=== PATIENT | female | born 1940 | race Caucasian/White ===

== ENCOUNTER 2017-04-06 17:23 | Inpatient (IN) | payer MEDICARE, OTHER ==
[~2017-04-06] VITALS: Ht 154.9 cm; Wt 84.0 kg
[~2017-04-06 17:23] MED LIST: ATOR20TA38 PO; CANA100T PO; CITA20TA11 PO; DEXL60CA2 PO; FERR-55 PO; FLUT16SP24 NASAL; GABA600T PO; HYDR-762 PO; INSU100I16 SC; INSU100I22 SC; LATA2.5D9 OP; MAGN400T27 PO; METO5TAB65 PO; VALS160T20 PO
[2017-04-06] MEDS ORDERED: SOD CHLORIDE 0.9% 1,000 ML IV STA (17:34)
[2017-04-06 17:55] LABS: BASOPHIL # 0.1 10^3/ul (0.0-0.1); EOSINOPHILS # 0.2 10^3/ul (0.0-0.5); EOSINOPHILS % 1.3 % (0.0-7.0); HEMATOCRIT 45.8 % (37.0-47.0); HEMOGLOBIN 15.6 g/dl (12.0-16.0); LYMPHOCYTES # 2.9 10^3/ul (0.8-2.9); LYMPHOCYTES % 25.6 % (15.0-51.0); MEAN CORPUSCULAR HEMOGLOBIN 30.1 pg (29.0-33.0); MEAN CORPUSCULAR HGB CONC 34.1 g/dl (32.0-37.0); MEAN CORPUSCULAR VOLUME 88.4 fl (82.0-101.0); MEAN PLATELET VOLUME 11.4 fl (7.4-10.4); MONOCYTE # 0.8 10^3/ul (0.3-0.9); MONOCYTES % 7.5 % (0.0-11.0); NEUTROPHIL # 7.1 10^3/ul (1.6-7.5); NEUTROPHILS % 64.2 % (39.0-77.0); PLATELET COUNT 349 10^3/UL (140-415); RED BLOOD COUNT 5.18 10^6/ul (4.20-5.40); RED CELL DISTRIBUTION WIDTH 13.2 % (11.5-14.5); WHITE BLOOD COUNT 11.1 10^3/ul (4.8-10.8)
[2017-04-06] MEDS ORDERED: DILTIAZEM 25 MG INJ IV ONE (18:00)
[2017-04-06 18:20] LABS: INR 0.91; PROTIME 12.3 Sec (12.2-14.2)
[2017-04-06 18:21] LABS: PARTIAL THROMBOPLASTIN TIME 25.2 Sec (25.0-35.0)
--- NOTE | 2017-04-06 18:21 | RADRPT ---
PROCEDURE: XR Chest. CLINICAL INDICATION: Chest pain. TECHNIQUE: Single frontal view. COMPARISON: None. FINDINGS: The lungs are clear. The heart is enlarged. There is no pleural effusion. There is no pneumothorax. IMPRESSION: 1. Cardiomegaly. 2. Clear lungs. RPTAT: QQ .Farhat Sigaal MD, MD Date Time Electronically viewed and signed by .Farhat Sigala MD, MD on 04/06/2017 18:21 .R/
[2017-04-06 18:32] LABS: CALCIUM 9.7 mg/dl (8.4-10.2); CREATININE 1.14 mg/dl (0.44-1.00)
[2017-04-06] MEDS ORDERED: POTASSIUM CHLORIDE (SR) 20 MEQ TAB PO STA (18:34)
[2017-04-06 18:36] LABS: POTASSIUM 2.4 mmol/L (3.5-5.1)
[2017-04-06 18:44] LABS: TROPONIN-I 0.049 ng/ml (0.00-0.12)
[2017-04-06 18:45] LABS: CK-MB 2.4 ng/ml (0.0-2.4); TROPONIN-I 0.05 ng/ml (0.00-0.12)
[2017-04-06] MEDS ORDERED: MAGNESIUM SULFATE 1 GM/D5W 100 ML IVPB ONE (19:00)
[2017-04-06] MEDS ORDERED: POTASSIUM CHLORIDE 250 ML IVPB ONE (19:00)
--- NOTE | 2017-04-06 19:17 | ERA ---
ER Documentation Chief Complaint Date/Time DATE: 04/06/17 TIME: 19:13 Chief Complaint SENT BY PMD FOR NEW ONSET OF A FIB , PT DIAPHORETIC , DENIES CP HPI This 76-year-old female presents to the emergency room for evaluation of heart palpitations. This patient states that she went to her primary care physician' s office, Dr. Manriquez where she is a new patient and the patient was found to be diaphoretic and an EKG did show atrial fibrillation. This patient has no history of atrial fibrillation. She states that she is feeling her heartbeat rapidly. She denies any actual chest pain or shortness of breath and came to the ER for evaluation. ROS All systems reviewed and are negative except as per history of present illness. Medications Home Meds Reported Medications Gabapentin* (Neurontin*) 600 Mg Tablet, 600 MG PO TID, TAB 11/09/14 Metolazone* (Metolazone*) 5 Mg Tablet, 5 MG PO DAILY, TAB 11/09/14 Ferrous Sulfate* (Ferrous Sulfate*) 325 Mg Tablet, 325 MG PO DAILY, TAB 11/09/14 Dexlansoprazole (Dexilant) 60 Mg Cap., 60 MG PO DAILY, CAP 11/09/14 Valsartan* (Diovan*) 160 Mg Tablet, 160 MG PO DAILY, TAB 11/09/14 Fluticasone Propionate* (Flonase* Nasal) 50 Mcg/[place] - 16 Gm [place].susp, 1 SPRAY NASAL DAILY, SPRAY TO EACH NOSTRIL 11/09/14 Citalopram Hydrobromide* (Celexa*) 20 Mg Tablet, 30 MG PO DAILY, TAB 11/09/14 Canagliflozin (Invokana) 100 Mg Tablet, 100 MG PO DAILY, TAB 11/09/14 Hydrocodone Bit-Acetaminophen* ([place]*) 10-325 Mg Tablet, 1 TAB PO Q4H Y for PAIN, TAB 11/09/14 Magnesium Oxide* (Mag-Oxide*) 400 Mg Tablet, 400 MG PO DAILY, TAB 11/09/14 Insulin Aspart (Novolog FlexPen) 100 Unit/1 Ml Insuln.pen, 0 SC SLIDING SCALE AC , EA 11/09/14 Insulin Detemir* (Levemir*) 100 Unit/1 Ml Insuln.pen, 50 UNIT SC QHS, EA 11/09/14 Latanoprost (Xalatan) 2.5 Ml Drops, 1 DROP OP QHS 11/09/14 Atorvastatin Calcium* (Atorvastatin Calcium*) 20 Mg Tablet, 20 MG PO HS, TAB 11/09/14 Allergies Allergies: Coded Allergies: sulfamethoxazole (Verified Allergy, Unknown, 11/09/14) trimethoprim (Verified Allergy, Unknown, 11/09/14) PMhx/Soc History of Surgery: Yes (Kidney Surgery) Anesthesia Reaction: No Hx 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 Disorder: No Hx Respiratory Disorders: No Hx Cardiac Disorders: Yes (Atrial Fibrillation, High Cholesterol, HTN, CHF) Hx Psychiatric Problems: No Hx Miscellaneous Medical Probl: Yes (Diabetes, Arthritis, Chronic Back Pain) Hx Alcohol Use: No Hx Substance Use: No Hx Tobacco Use: No Smoking Status: Never smoker Physical Exam Vitals Vital Signs Date Time Temp Pulse Resp B/P Pulse Ox O2 Delivery O2 Flow Rate FiO2 04/06/17 18:36 98.3 89 17 116/73 98 Room Air 04/06/17 17:49 Nasal Cannula 4 04/06/17 17:26 98.2 104 18 112/53 96 Physical Exam INITIAL VITAL SIGNS: Reviewed by me GENERAL: The patient is well developed , slightly diaphoretic HEENT: Pupils equal, round, and reactive to light. EOMI. There is no scleral icterus. NECK: C-spine is soft and supple, there is no meningismus. There is no cervical lymphadenopathy. LUNGS: Clear to auscultation bilaterally. There are no rales, wheezes or rhonchi. HEART: Irregularly irregular rhythm no murmurs, clicks, rubs or gallops. ABDOMEN: Soft, non-tender, non-distended. There are bowel sounds in all four quadrants. No rebound or guarding. EXTREMITIES: There is no peripheral cyanosis or edema. No focal swelling or erythema. NEUROLOGICAL: The patient moves all four extremities with 5/5 strength. Cranial nerves II - XII are intact. Normal gait. Alert and oriented SKIN: There is no apparent rash or petechiae. HEME/LYMPHATIC: There is no evidence of excessive bruising or lymphedema. PSYCHIATRIC: The patient does not appear anxious or depressed. Result Diagram: 04/06/17 1750 04/06/17 1750 Results 24 hrs Laboratory Tests Test 04/06/17 17:50 White Blood Count 11.110^3/ul Red Blood Count 5.1810^6/ul Hemoglobin 15.6g/dl Hematocrit 45.8% Mean Corpuscular Volume 88.4fl Mean Corpuscular Hemoglobin 30.1pg Mean Corpuscular Hemoglobin Concent 34.1g/dl Red Cell Distribution Width 13.2% Platelet Count 71275^3/UL Mean Platelet Volume 11.4fl Neutrophils % 64.2% Lymphocytes % 25.6% Monocytes % 7.5% Eosinophils % 1.3% Basophils % 1.0% Nucleated Red Blood Cells % 0.0/100WBC Neutrophils # 7.110^3/ul Lymphocytes # 2.910^3/ul Monocytes # 0.810^3/ul Eosinophils # 0.210^3/ul Basophils # 0.110^3/ul Nucleated Red Blood Cells # 0.010^3/ul Prothrombin Time 12.3Sec Prothrombin Time Ratio 1.0 INR International Normalized Ratio 0.91 Activated Partial Thromboplast Time 25.2Sec Sodium Level 138mmol/L Potassium Level 2.4mmol/L Chloride Level 81mmol/L Carbon Dioxide Level 36mmol/L Anion Gap 23 Blood Urea Nitrogen 28mg/dl Creatinine 1.14mg/dl Glucose Level 355mg/dl Calcium Level 9.7mg/dl Creatine Kinase 52IU/L Creatine Kinase Index 4.6 Creatinine Kinase MB (Mass) 2.40ng/ml Troponin I 0.050ng/ml B-Type Natriuretic Peptide Pending Current Medications Medications (Trade) Dose Ordered Sig/Aaron Route PRN Reason Start Time Stop Time Status Last Admin Dose Admin Sodium Chloride (NS) 1,000 ml @ 1,000 mls/hr Q1H STAT IV 04/06/17 17:34 04/06/17 18:33 DC 04/06/17 17:59 Diltiazem HCl (Cardizem Iv) 10 mg ONCE ONCE IV 04/06/17 18:00 04/06/17 18:01 DC Potassium Chloride 40 meq 40 meq ONCE STAT PO 04/06/17 18:34 04/06/17 18:35 DC 04/06/17 19:05 Potassium Chloride 250 ml @ 62.5 mls/hr ONCE ONCE IVPB 04/06/17 19:00 04/06/17 22:59 Magnesium Sulfate/ Dextrose (Magnesium Sulfate 1 Gm/D5W) 100 ml @ 100 mls/hr ONCE ONCE IVPB 04/06/17 19:00 04/06/17 19:59 Procedures/MDM EKG: Rate/Rhythm: Mobitz type I QRS, ST, T-waves: [No changes consistent w/ acute ischemia] Impression: Mobitz type I Chest X-ray 1V Interpreted by me: Soft Tissue: No acute abnormalities Bones: No acute abnormalities Mediastinum/Cardiac Silhouette/Lungs: [No acute abnormalities] This 76-year-old female presents to the emergency room for evaluation of heart palpitations. When I evaluated her this patient did have an irregularly irregular rhythm. An EKG was obtained which does show Mobitz type I. The patient was slightly tachycardic rate of 105. The patient did undergo lab work which does show potassium of 2.4. She is taking Lasix 40 mg twice daily. The patient was given 1 g of magnesium, 40 mEq of potassium by mouth, and was given 40 mg once a potassium IV. Given this patient's heart palpitations, abnormal EKG, and hypokalemia she will be placed in for admission at this time on the telemetry floor under the care of Dr. cortez Critical Care: Excluding all billable procedures Time: 38 minutes Treatments/Evaluations: Close monitoring and treatment of unstable vital signs, cardiorespiratory, and neurologic status, while maintaining tight balance of fluid, respiratory, and cardiac interventions. Departure Diagnosis: Primary Impression: Heart palpitations Additional Impressions: Mobitz (type) I (Wenckebach's) atrioventricular block Hypokalemia Hyperglycemia Condition: Fair ANDRIY SOLANO DO Apr 06, 2017 19:17
[2017-04-06] MEDS ORDERED: ALBU8.5H3 INH (19:18)
[2017-04-06] MEDS ORDERED: PREG50CA PO (19:18)
[2017-04-06] MEDS ORDERED: CLOP75TA4 PO (19:19)
[2017-04-06] MEDS ORDERED: FURO40TA4 PO (19:19)
[2017-04-06] MEDS ORDERED: ADV25050 INHALATION (19:20)
[2017-04-06] MEDS ORDERED: INSU300I SQ (19:20)
[2017-04-06] MEDS ORDERED: ATOR20TA38 PO (19:21)
[2017-04-06] MEDS ORDERED: DULO60CA59 PO (19:21)
[2017-04-06] MEDS ORDERED: ONDANSETRON 4 MG INJ IV PRN ×2 (19:30→21:30)
[2017-04-06] MEDS ORDERED: ACETAMINOPHEN 325 MG TAB PO PRN ×2 (19:30→21:30)
[2017-04-06 20:30] VITALS: TEMP 98.3
[2017-04-06] MEDS ORDERED: GLUCOSE GEL 15 GRAM TUBE PO PRN ×2 (21:30)
[2017-04-06] MEDS ORDERED: morphine 2 MG INJ IV PRN (21:30)
[2017-04-06] MEDS ORDERED: ALBUTEROL HFA 8 GM INHALER INH PRN (21:30)
[2017-04-06] MEDS ORDERED: DOCUSATE SODIUM 100 MG CAP PO PRN (21:30)
[2017-04-06] MEDS ORDERED: LORAZEPAM 0.5 MG TAB PO PRN (21:30)
[2017-04-06] MEDS ORDERED: GLUCAGON 1 MG INJ IM PRN (21:30)
[2017-04-06] MEDS ORDERED: GLUCOSE GEL 15 GRAM TUBE BUCCAL PRN (21:30)
[2017-04-06] MEDS ORDERED: NITROGLYCERIN (SL) 0.4 MG TAB SL PRN (21:30)
[2017-04-06] MEDS ORDERED: HYDROCODONE/APAP (5/325) TAB PO PRN (21:30)
[2017-04-06] MEDS ORDERED: NACL 0.9% 3 ML SYG IV SCH (21:30)
[2017-04-06] MEDS ORDERED: BISACODYL (EC) 5 MG TAB PO PRN (21:30)
[2017-04-06] MEDS ORDERED: MAGNESIUM HYDROXIDE 30ML CUP PO PRN (21:30)
[2017-04-06] MEDS ORDERED: DEXTROSE 50% 50 ML SYRINGE IV PRN ×2 (21:30)
--- NOTE | 2017-04-06 21:42 | HP ---
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 The patient presented to my office today this afternoon for the first visit as a new patient. Upon evaluation EKG revealed atrial fibrillation with evidence of ST depressions in the lateral leads consistent with ischemia. Her heart was irregular and she was noted to be diaphoretic. I instructed her to go to the emergency department for further evaluation. In the ER she was found to have severe hypokalemia with potassium of 2.4. Glucose level of 350. An EKG reveals Mobitz type I arrhythmia. It was decided to admit the patient for further care. Patient did report palpitations at times and complains of left upper quadrant pain which has been there for quite some time. She did state that she had multiple imaging tests and they could not find why she has that pain. I have spoken to her son Darrel and informed him of patient's plan of care. ROS All systems reviewed and are negative except as per history of present illness. PMHX Primary Care Physician Mahad Bolaños MD Past medical history includes diabetes mellitus hypertension congestive heart failure osteoarthritis macular degeneration with left eye decreased vision COPD secondary to secondhand smoking with recurrent urinary tract infections anxiety disorder. FmHx Family history both parents are there is history of CHF in her father. Patient denies any cancer the family. Last mammogram was 1 year ago. Last colonoscopy was more than 4 years ago which was normal. Patient does not see a escort car driver. Patient has been hospitalized multiple multiple [facility] at [facility]. Patient lives by herself. She has a front wheel walker. Surgical history: Kidney reconstruction surgery on the right. Social Hx Hx Alcohol Use: No Hx Substance Use: No Hx Tobacco Use: No (heave 2nd hand smoking) Smoking Status: Never smoker Physical Exam Physical Exam Vital Signs Date Time Temp Pulse Resp B/P Pulse Ox O2 Delivery O2 Flow Rate FiO2 04/06/17 20:30 98.3 74 17 129/84 98 Room Air 04/06/17 17:49 4 Const: Patient is obese and pale Head: Normocephalic atraumatic Eyes: Pupils are equal equal reactive to light and accommodation ENT: Normal external ears nose and mouth Neck: Full range of motion Resp: Clear to auscultation bilaterally Cardio: Irregular Abd: Soft nontender right lower quadrant scar Skin: No apparent rash Back: No flank tenderness Ext: Trace edema noted in the lower extremities Neuro: No focal deficits Psych: Normal mood less anxious Result Diagram: 04/06/17174904/06/171749 VTE Prophylaxis VTE Prophylaxis Intervention: ambulation (Ambulating with assistance), LMWH Assessment/Plan Problems: (1) Neck pain (2) Hypokalemia (3) Hyperglycemia (4) Mobitz (type) I (Wenckebach's) atrioventricular block (5) Heart palpitations Assessment/Plan Assessment and plan: This is an unfortunate 76-year-old female with history of diabetes mellitus hypertension congestive heart failure osteoarthritis dyslipidemia macular degeneration COPD secondary to second hand smoking presents with questionable arrhythmia, severe hypokalemia, hyperglycemia. 1. pulmonary-chest x-ray is negative, there is no evidence of fluid overload. Breathing treatment will be provided as needed O2 supplements will be provided as well. 2. Cardiovascular-patient with questionable arrhythmia vegetable atrial fibrillation. We will monitor patient on telemetry unit. Will consult cardiology. Will repeat EKG in the a.m. We will start the patient on low-dose beta blockers. Patient will be placed on DVT prophylaxis with Lovenox. Continue Plavix. Resume Lasix and we will hold metolazone. 3. GI-patient will be placed on Protonix for GI prophylaxis. Patient is complaining of left upper quadrant pain we will obtain an abdominal ultrasound. Will obtain a UA and urine analysis to rule out UTI. 4. Depression: Continue Cymbalta. 5. Renal: Replace potassium and monitor level. Hold metolazone. 6. Diabetes mellitus: We will place the patient on weight-based insulin. Will titrate it up as needed. Will check hemoglobin A1c. We will place the patient on ADA 1800 2 g sodium diet. 7. Anxiety disorder-as needed Ativan will be provided as needed. 8. We will communicate with patient's son Darrel 9. Frequent sweating-will check TSH, cortisol level, monitor for hypoglycemia. 10. Obese giorz-yhs-nayq low-fat diet is advised we will consult the dietitian. 11. Leukocytosis- will obtain urinalysis to rule out UTI Medications Medications Home Meds Reported Medications Duloxetine Hcl* (Duloxetine Hcl*) 60 Mg Capsule.dr, 60 MG PO DAILY, #30 CAP 04/06/17 Atorvastatin Calcium* (Atorvastatin Calcium*) 20 Mg Tablet, 20 MG PO QAM, #30 TAB 04/06/17 Insulin Glargine,Hum.rec.anlog ([place]) 300 Unit/1 Ml Insuln.pen, 80 UNIT SQ QAM 04/06/17 Salmeterol Xinaf/Fluticasone* (Advair*) 250-50 Diskus Inhaler, 1 INH INHALATION BID, #1 INHALER 04/06/17 Furosemide* (Furosemide*) 40 Mg Tablet, 40 MG PO BID, TAB 04/06/17 Clopidogrel Bisulfate* (Clopidogrel Bisulfate*) 75 Mg Tablet, 75 MG PO DAILY, # 30 TAB 04/06/17 Pregabalin* (Lyrica*) 50 Mg Capsule, 50 MG PO TID, CAP 04/06/17 Albuterol Sulfate* (Proair HFA*) 8.5 Gm Hfa.aer.ad, 2 PUFF INH Q4H Y for WHEEZING AND SOB, #1 INHALER 04/06/17 Metolazone* (Metolazone*) 5 Mg Tablet, 5 MG PO DAILY, TAB QAM 11/09/14 Valsartan* (Diovan*) 160 Mg Tablet, 160 MG PO DAILY, TAB 11/09/14 Fluticasone Propionate* (Flonase* Nasal) 50 Mcg/[place] - 16 Gm [place].susp, 1 SPRAY NASAL DAILY, SPRAY TO EACH NOSTRIL 11/09/14 Insulin Aspart (Novolog FlexPen) 100 Unit/1 Ml Insuln.pen, 0 SC SLIDING SCALE AC , EA TAKE BEFOR MEALS,START WITH 15 UNITS 11/09/14 Discontinued Reported Medications Gabapentin* (Neurontin*) 600 Mg Tablet, 600 MG PO TID, TAB 11/09/14 Ferrous Sulfate* (Ferrous Sulfate*) 325 Mg Tablet, 325 MG PO DAILY, TAB 11/09/14 Dexlansoprazole (Dexilant) 60 Mg Jassi., 60 MG PO DAILY, CAP 11/09/14 Citalopram Hydrobromide* (Celexa*) 20 Mg Tablet, 30 MG PO DAILY, TAB 11/09/14 Canagliflozin (Invokana) 100 Mg Tablet, 100 MG PO DAILY, TAB 11/09/14 Hydrocodone Bit-Acetaminophen* ([place]*) 10-325 Mg Tablet, 1 TAB PO Q4H Y for PAIN, TAB 11/09/14 Magnesium Oxide* (Mag-Oxide*) 400 Mg Tablet, 400 MG PO DAILY, TAB 11/09/14 Insulin Detemir* (Levemir*) 100 Unit/1 Ml Insuln.pen, 50 UNIT SC QHS, EA 11/09/14 Latanoprost (Xalatan) 2.5 Ml Drops, 1 DROP OP QHS 11/09/14 Atorvastatin Calcium* (Atorvastatin Calcium*) 20 Mg Tablet, 20 MG PO HS, TAB 11/09/14 MAHAD BOLAÑOS MD Apr 06, 2017 21:32
[2017-04-06] MEDS: INSULIN ASPART [NOVOLOG] 3 ML PEN SC SCH (21:51)
[2017-04-06 22:33] VITALS: BP 131/60; RESP 20
[2017-04-06 22:47] VITALS: PULSE 95
[2017-04-06] MEDS: INSULIN GLARGINE [LANtus] 3 ML PEN SC SCH (23:00)
[2017-04-07] VITALS (14 sets, daily range): BP systolic 112–140; BP diastolic 54–64; PULSE 68–107; RESP 19–20; Ht 154.9 cm; Wt 84.0 kg
[2017-04-07] MEDS: ACCU-CHEK XX SCH (02:00)
[2017-04-07] MEDS: FUROSEMIDE 40 MG TAB PO SCH ×2 (06:00→17:20)
[2017-04-07] MEDS: PANTOPRAZOLE (EC) 40 MG TAB PO SCH (06:00)
[2017-04-07 07:19] LABS: BASOPHIL # 0.1 10^3/ul (0.0-0.1); BASOPHILS % 0.9 % (0.0-2.0); EOSINOPHILS # 0.3 10^3/ul (0.0-0.5); EOSINOPHILS % 2.9 % (0.0-7.0); HEMATOCRIT 40.2 % (37.0-47.0); HEMOGLOBIN 13.2 g/dl (12.0-16.0); LYMPHOCYTES # 2.6 10^3/ul (0.8-2.9); LYMPHOCYTES % 28.5 % (15.0-51.0); MEAN CORPUSCULAR HEMOGLOBIN 30.1 pg (29.0-33.0); MEAN CORPUSCULAR HGB CONC 32.8 g/dl (32.0-37.0); MEAN CORPUSCULAR VOLUME 91.8 fl (82.0-101.0); MEAN PLATELET VOLUME 11.4 fl (7.4-10.4); MONOCYTE # 0.8 10^3/ul (0.3-0.9); MONOCYTES % 9.3 % (0.0-11.0); NEUTROPHIL # 5.3 10^3/ul (1.6-7.5); PLATELET COUNT 268 10^3/UL (140-415); RED BLOOD COUNT 4.38 10^6/ul (4.20-5.40); RED CELL DISTRIBUTION WIDTH 13.3 % (11.5-14.5); WHITE BLOOD COUNT 9.1 10^3/ul (4.8-10.8)
[2017-04-07 08:32] LABS: CK-MB 9.31 ng/ml (0.0-2.4); TROPONIN-I 0.057 ng/ml (0.00-0.12)
[2017-04-07] MEDS: SALMETEROL/FLUTICASONE 250/50 INHA INH SCH ×2 (08:46→21:00)
[2017-04-07] MEDS: FLUTICASONE 0.05% 16 GM NAS SPRAY NASAL SCH (08:46)
[2017-04-07] MEDS: ATORVASTATIN 20 MG TAB PO SCH (08:47)
[2017-04-07] MEDS: CLOPIDOGREL 75 MG TAB PO SCH (08:47)
[2017-04-07] MEDS: VALSARTAN 160 MG TAB PO SCH (08:47)
[2017-04-07] MEDS: PREGABALIN 25 MG CAP PO SCH ×3 (08:48→21:56)
[2017-04-07] MEDS: METOPROLOL 25 MG TAB PO SCH ×2 (08:48→21:55)
[2017-04-07] MEDS: DULOXETINE 30 MG CAP DR PO SCH (08:48)
[2017-04-07] MEDS: INSULIN ASPART [NOVOLOG] 3 ML PEN SC SCH ×8 (08:52→21:00)
[2017-04-07] MEDS: INSULIN GLARGINE [LANtus] 3 ML PEN SC SCH (08:53)
--- NOTE | 2017-04-07 08:59 | RADRPT ---
PROCEDURE: US Abdomen and retroperitoneal complete. CLINICAL INDICATION: abdominal pain TECHNIQUE: Multiple real-time images were acquired of the patient's abdomen and retroperitoneum ut ilizing a high resolution transducer. COMPARISON: None FINDINGS: The study is suboptimal due to overlying bowel gas and patient's body habitus. The liver demonstrates increased echogenicity. The liver is normal in size and no focal solid lesio ns are seen. The portal vein is patent with normal direction of flow. No intrahepatic biliary dila tation is seen. The liver measures 15.3 cm in length. No gallstones are identified within the gallbladder. There is no pericholecystic fluid or gallbladd er wall thickening. The common bile duct measures 4 mm in maximal dimension. The visualized portions of the pancreas are unremarkable. The tail of the pancreas is not seen. The spleen is normal in size. The spleen measures 10.3 cm in length. No free fluid is identified. The kidneys are normal in size, and demonstrate normal cortical echogenicity and cortical thickness. The right kidney measures 11.3 cm. The left kidney measures 11 cm. There are no kidney stones. There is a right extrarenal pelvis versus mild right-sided hydronephrosis.. The proximal aorta measures 1.9 cm in transverse dimension. There is apparent thickening of the wall of the stomach versus under distension. RPTAT: AA IMPRESSION: Mild fatty infiltration of the liver. Right extrarenal pelvis versus mild right-sided hydronephrosis.. Thickening of the wall of the stomach versus under distension. Correlation with CT is recommended. .Avila Little MD, Date Time Electronically viewed and signed by .Avila Little MD, MD on 04/07/2017 08:59 .S/
[2017-04-07] MEDS: ENOXAPARIN 40 MG/0.4 ML SYG SC SCH (09:03)
[2017-04-07 09:28] LABS: ALBUMIN 3.6 g/dl (3.3-4.9); ALBUMIN/GLOBULIN RATIO 1.44; BILIRUBIN,INDIRECT 0.3 mg/dl (0-1.1); BILIRUBIN,TOTAL 0.3 mg/dl (0.2-1.3); CALCIUM 8.9 mg/dl (8.4-10.2); CHOL/HDL RATIO 4.6 RATIO; CREATININE 0.99 mg/dl (0.44-1.00); POTASSIUM 3.3 mmol/L (3.5-5.1); TOTAL PROTEIN 6.1 g/dl (6.1-8.1)
[2017-04-07] MEDS ORDERED: POTASSIUM CHLORIDE (SR) 20 MEQ TAB PO STA (09:42)
--- NOTE | 2017-04-07 14:10 | PN ---
Date/Time of Note Date/Time of Note DATE: 04/07/17 TIME: 13:52 Assessment/Plan VTE Prophylaxis VTE Prophylaxis Intervention: LMWH Lines/Catheters IV Catheter Type (from [facility]): [facility] Urinary Cath still in place: No Assessment/Plan Assessment/Plan Patient is a 76-year-old obese female with history of diabetes mellitus type 2, hypertension, cervical spine disc disease, who presented arrhythmia questionable atrial fibrillation. Has been explained for left upper quadrant pain. Diabetes poorly controlled. Also frequent episodes of sweating diaphoresis and being clammy. #1 Respiratory-keep the patient on oxygen supplements. Patient possibly has obstructive sleep apnea. Would recommend her to have a sleep study as an outpatient basis. Her chest x-ray is negative no evidence of fluid overload. #2 Cardiovascular-Patient with arrhythmia. Monitor patient telemetry unit. Follow-up cardiology recommendations. For now continue diuretic therapy. Continue aspirin. Continue beta blockers Plavix and statins. Follow-up echocardiogram results. #3. Diabetes mellitus with hemoglobin A1c of 11.5-already on high-dose insulin. Will consult Dr. Connor for endocrinology consult. Patient also has frequent sweating episodes check cortisol level. I appreciate dietitian recommendations. #4 Left upper quadrant pain abdominal ultrasound shows possible thickened stomach.-I consulted Dr. Wilkinson for GI consultation as. This patient may benefit from an EGD. Will continue Protonix for GI prophylaxis. Check stool for occult blood. #5. renal-. Replace potassium monitor electrolytes. #6 spinal disc disease-continue Lyrica and pain medications as needed. #7. We will review medical records from [facility]. #8. Anxiety disorder-continue Cymbalta. Ativan as needed will be prescribed. Subjective 24 Hr Interval Summary Free Text/Dictation patient seen at bedside. Labs reviewed. I requested cardiology, Endocrinology , and GI consult. Patient had a run of V. tach. In addition patient glucose level remains in the 200 and patient hemoglobin A1c is high at 11.5 suggesting poor glycemic control at home. She also has been complaining of left upper quadrant pain for 3 months. Some workup was done at [facility] will review records. Patient continues to have episodes of diaphoresis sweating and being clammy. Case discussed with nursing staff in detail. Awaiting urine studies as well. Patient also has been experiencing on-and-off shortness of breath. Constitutional: requiring O2 Eyes: No discharge ENT: No congestion Respiratory: No pleuritic pain, No wheezing Cardiovascular: No lightheadedness Gastrointestinal: pain (Left upper quadrant pain) Genitourinary: No bleeding Musculoskeletal: No back pain Skin: No laceration Neurologic: No focal-weakness Endocrine: No dry skin, No polydypsia Lymphatic: No lymphadema, No tender nodes Psychological: anxiety, No confusion Exam/Review of Systems Vital Signs Vitals Vital Signs Date Time Temp Pulse Resp B/P Pulse Ox O2 Delivery O2 Flow Rate FiO2 04/07/17 13:36 107 04/07/17 11:35 98.3 19 125/59 95 04/07/17 08:10 Nasal Cannula 2.0 Intake and Output 04/06/17 04/06/17 04/07/17 15:00 23:00 07:00 Intake Total 350 ml Balance 350 ml Exam Constitutional: obese, other (Pale) Psych: anxiety Head: No lacerations Eyes: PERRL Neck: No bruits, No masses, No nuchal rigidity Respiratory: diminished breath sounds, No crackles/rales Gastrointestinal: distended, No hepatomegaly Extremities: edema (Nonpitting edema), No clubbing, No cyanosis 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: No confused Results Result Diagram: 04/07/17 0650 04/07/17 0649 Results 24 hrs Laboratory Tests Test 04/06/17 17:50 04/06/17 21:50 04/07/17 02:14 04/07/17 06:49 White Blood Count 11.1 #H Red Blood Count 5.18 Hemoglobin 15.6 Hematocrit 45.8 Mean Corpuscular Volume 88.4 Mean Corpuscular Hemoglobin 30.1 Mean Corpuscular Hemoglobin Concent 34.1 Red Cell Distribution Width 13.2 Platelet Count 349 Mean Platelet Volume 11.4 #H Neutrophils % 64.2 Lymphocytes % 25.6 Monocytes % 7.5 Eosinophils % 1.3 Basophils % 1.0 Nucleated Red Blood Cells % 0.0 Neutrophils # 7.1 Lymphocytes # 2.9 Monocytes # 0.8 Eosinophils # 0.2 Basophils # 0.1 Nucleated Red Blood Cells # 0.0 Prothrombin Time 12.3 Prothrombin Time Ratio 1.0 INR International Normalized Ratio 0.91 Activated Partial Thromboplast Time 25.2 Sodium Level 138 142 Potassium Level 2.4 *L 3.3 L Chloride Level 81 L 90 L Carbon Dioxide Level 36 H 39 H Anion Gap 23 H 16 # Blood Urea Nitrogen 28 H 24 H Creatinine 1.14 H 0.99 Glucose Level 355 H 204 # Calcium Level 9.7 8.9 Creatine Kinase 52 532 #H Creatine Kinase Index 4.6 1.8 Creatinine Kinase MB (Mass) 2.40 9.31 H Troponin I 0.050 0.057 B-Type Natriuretic Peptide 763 H Bedside Glucose 206 160 Total Bilirubin 0.3 Direct Bilirubin 0.00 Indirect Bilirubin 0.3 Aspartate Amino Transf (AST/SGOT) 38 Alanine Aminotransferase (ALT/SGPT) 32 Alkaline Phosphatase 66 Total Protein 6.1 Albumin 3.6 Globulin 2.50 Albumin/Globulin Ratio 1.44 Triglycerides Level 175 H Cholesterol Level 150 LDL Cholesterol, Calculated 83 HDL Cholesterol 32 L Cholesterol/HDL Ratio 4.6 Thyroid Stimulating Hormone (TSH) Pending Test 04/07/17 06:50 04/07/17 08:38 04/07/17 12:10 White Blood Count 9.1 Red Blood Count 4.38 Hemoglobin 13.2 Hematocrit 40.2 Mean Corpuscular Volume 91.8 Mean Corpuscular Hemoglobin 30.1 Mean Corpuscular Hemoglobin Concent 32.8 Red Cell Distribution Width 13.3 Platelet Count 268 # Mean Platelet Volume 11.4 H Neutrophils % 58.0 Lymphocytes % 28.5 Monocytes % 9.3 Eosinophils % 2.9 Basophils % 0.9 Nucleated Red Blood Cells % 0.0 Neutrophils # 5.3 Lymphocytes # 2.6 Monocytes # 0.8 Eosinophils # 0.3 Basophils # 0.1 Nucleated Red Blood Cells # 0.0 Hemoglobin A1c 11.5 H Bedside Glucose 193 209 Medications Medications Current Medications Lorazepam (Ativan) 0.5 mg Q8H PRN PO ANXIETY; Start 04/06/17 at 21:30 Ondansetron HCl (Zofran Inj) 4 mg Q6H PRN IV NAUSEA AND/OR VOMITING; Start at 21:30 Nitroglycerin (Nitroglycerin (Sl Tab) 0.4 Mg) 1 tab Q5M PRN SL CHEST PAIN; Start 04/06/17 at 21:30 Acetaminophen (Tylenol Tab) 650 mg Q6H PRN PO PAIN LEVEL 1-3 OR FEVER; Start at 21:30 Acetaminophen/ Hydrocodone Bitart ([place] (5/325)) 1 tab Q6H PRN PO PAIN LEVEL 4 -6; Start 04/06/17 at 21:30 Morphine Sulfate (morphine) 2 mg Q4H PRN IV PAIN LEVEL 7-10; Start 04/06/17 at 21:30 Docusate Sodium (Colace) 100 mg Q12H PRN PO CONSTIPATION; Start 04/06/17 at 21: 30 Magnesium Hydroxide (Milk Of Mag) 30 ml DAILY PRN PO CONSTIPATION; Start at 21:30 Bisacodyl (Dulcolax) 5 mg DAILY PRN PO CONSTIPATION; Start 04/06/17 at 21:30 Pantoprazole (Protonix Tab) 40 mg DAILY@06 PO ; Start 04/07/17 at 06:00 Enoxaparin Sodium (Lovenox) 40 mg DAILY SC Last administered on 04/07/17 09:03 ; Admin Dose 40 MG; Start 04/07/17 at 09:00 Metoprolol Tartrate (Lopressor) 25 mg BID PO Last administered on 04/07/17 08: 48; Admin Dose 25 MG; Start 04/07/17 at 09:00 Albuterol (Ventolin Hfa) 2 puff Q4H PRN INH WHEEZING AND SOB; Start 04/06/17 at 21:30 Atorvastatin Calcium (Lipitor) 20 mg QAM PO Last administered on 04/07/17 08: 47; Admin Dose 20 MG; Start 04/07/17 at 09:00 Clopidogrel Bisulfate (plaVIX) 75 mg DAILY PO Last administered on 04/07/17 08 :47; Admin Dose 75 MG; Start 04/07/17 at 09:00 Duloxetine HCl (Cymbalta) 60 mg DAILY PO Last administered on 04/07/17 08:48; Admin Dose 60 MG; Start 04/07/17 at 09:00 Fluticasone Propionate (Flonase 0.05% Nasal) 1 spray DAILY NASAL Last administered on 04/07/17 08:46; Admin Dose 1 SPRAY; Start 04/07/17 at 09:00 Pregabalin (Lyrica) 50 mg TID PO Last administered on 04/07/17 12:11; Admin Dose 50 MG; Start 04/07/17 at 09:00 Salmeterol Xinafoate/ Fluticasone (Advair 250/50 Diskus) 1 inh BID INH Last administered on 04/07/17 08:46; Admin Dose 1 INH; Start 04/07/17 at 09:00 Valsartan (Diovan) 160 mg DAILY PO Last administered on 04/07/17 08:47; Admin Dose 160 MG; Start 04/07/17 at 09:00 Diagnostic Test (Pha) (Accu-Chek) 1 ea 02 XX Last administered on 04/07/17 02: 00; Admin Dose 1 EA; Start 04/07/17 at 02:00 Insulin Glargine (Lantus) 30 unit Q12 SC Last administered on 04/07/17 08:53; Admin Dose 30 UNIT; Start 04/06/17 at 21:30 Miscellaneous Information 1 ea NOTE XX ; Start 04/06/17 at 21:30 Glucose (Glutose) 15 gm Q15M PRN PO DECREASED GLUCOSE; Start 04/06/17 at 21:30 Glucose (Glutose) 22.5 gm Q15M PRN PO DECREASED GLUCOSE; Start 04/06/17 at 21: 30 Dextrose (D50w Syringe) 25 ml Q15M PRN IV DECREASED GLUCOSE; Start 04/06/17 at 21:30 Dextrose (D50w Syringe) 50 ml Q15M PRN IV DECREASED GLUCOSE; Start 04/06/17 at 21:30 Glucagon (Glucagen) 1 mg Q15M PRN IM DECREASED GLUCOSE; Start 04/06/17 at 21:30 Glucose (Glutose) 15 gm Q15M PRN BUCCAL DECREASED GLUCOSE; Start 04/06/17 at 21 :30 JONATHAN HOWARD MD Apr 07, 2017 14:02
--- NOTE | 2017-04-07 15:08 | RADRPT ---
PROCEDURE: US Lower extremity Venous. CLINICAL INDICATION: Bilateral lower extremity edema TECHNIQUE: Multiple sonographic images of the bilateral lower extremity deep venous system was obt ained utilizing grayscale, color-flow, compressive sonography and doppler imaging with augmentation. The images were reviewed on a PACS workstation. COMPARISON: None. FINDINGS: There is normal compressibility and flow within the bilateral common femoral, femoral , posterior ti bial and popliteal veins. RPTAT: AA IMPRESSION: No sonographic evidence for deep venous thrombosis. .Avila Little MD, MD Date Time Electronically viewed and signed by .Avila Little MD, on 04/07/2017 15:07 .S/
--- NOTE | 2017-04-07 15:46 | RADRPT ---
Echocardiogram Report Patient Name: JANAE SY Gender: Female Date: 1940 Study Date: 07-Apr-2017 Inspector Chief: Olivia Frey [facility] Location: 5563 Ref. Physician: JONATHAN HOWARD Quality: Good Procedures: Transthoracic echocardiogram with complete 2D, M-Mode, and doppler examination. Indications: new onset of Atrial Fibrillation. Congestive Heart Failure. 2D/M Mode Doppler Measurement Value Normal Ranges Measurement Value Normal Ranges LVIDd 2D 4.0 3.5 - 5.6 cm AV Peak Denilson 2.1 m/sec LVIDs 2D 2.2 2.1 - 4.1 cm AV Peak PG 18.0 mmHg FS 2D 45.6 % LVOT Peak [place]ilson 1.4 m/sec LVPWd 2D 0.9 0.6 - 1.1 cm LVOT Peak PG 8.0 mmHg IVSd 2D 1.0 0.6 - 1.1 cm MV E Peak Denilson 1.4 m/sec IVS/LVPW 2D 1.1 MV Decel Time 208 msec AoR Diam 2D 2.3 2.0 - 3.7 cm LA/Ao 2D 2 0 - 1 EDV 2D 63.5 cm3 ESV 2D 10.2 cm3 LA Dimen 2D 4.0 2.3 - 4.0 cm Findings Left Ventricle: Lower limits of normal systolic function. Normal left ventricular cavity size. Normal left ventricular wall thickness. Ejection fraction is visually estimated at 65 %. Tissue Doppler/Mitral Doppler indices are indeterminate in this study due to the presence of atrial fibrillation. Right Ventricle: Normal right ventricular size. Normal right ventricular systolic function. Left Atrium: There is mild enlargement of left atrium. Right Atrium: The right atrium is normal in size. Mitral Valve: Mitral valve leaflets appear mildly thickened. Mild mitral annular calcification. Mild mitral valve prolapse involving the anterior mitral leaflet. Trace mitral regurgitation. Aortic Valve: Aortic sclerosis without stenosis. No aortic regurgitation. Tricuspid Valve: Normal appearance of the tricuspid valve. Unable to obtain RVSP due to minimal presence of tricuspid regurgitation. Pulmonic Valve: Normal pulmonic valve appearance. Pericardium: Normal pericardium with no significant pericardial effusion. Aorta: Normal aortic root. IVC: Normal size and normal respiratory collapse consistent with normal right atrial pressure. Conclusions 1.Lower limits of normal systolic function. Normal left ventricular cavity size. Normal left ventricular wall thickness. Ejection fraction is visually estimated at 65 %. Tissue Doppler/Mitral Doppler indices are indeterminate in this study due to the presence of atrial fibrillation. 2.There is mild enlargement of left atrium. 3.Mitral valve leaflets appear mildly thickened. Mild mitral annular calcification. Mild mitral valve prolapse involving the anterior mitral leaflet. Trace mitral regurgitation. 4.Normal appearance of the tricuspid valve. Unable to obtain RVSP due to minimal presence of tricuspid regurgitation. Electronically Signed By: Toney Stewart 07-Apr-2017 15:45:25 -0700 Patient Name: JANAE SY Study Date: 07-Apr-2017 [id number]
--- NOTE | 2017-04-07 16:45 | CONS ---
Date/Time of Note Date/Time of Note DATE: 04/07/17 TIME: 16:34 Assessment/Plan Assessment/Plan Additional Assessment/Plan Assessment/recommendations: 1. Pafib with RVR: appears to be related to severe hypo K 2. Reported history of CHF: At this time there is no evidence of CHF. 3. DM: poorly controlled with markedly elevated HgA1c 4. HTN: controlled well 5. episode of short asymptomatic NSVT 6. Hypo K due to diuretics. 7. obesity and probably obesity hypoventilation syndrome. 8. likely LENNY Recommendations: CONT PLAVIX CONT betablocker. replace lytes including aldactone will dec diuretics to only lasix 40q d and aldactone 25 qd. cont ARB Endocrine consulation has been called already for better DM managment consider outpt sleep study will consider outpt stress testing for abnormal ECG and multiple risk factors. but at this time pt denies any angina. Patient has been scheduled to follow with me as an outpatient on April 26 at 4 PM. Thank you for his referral. Consultation Date/Type/Reason Admit Date/Time Date of Consultation: Apr 07, 2017 Type of Consultation: CARDIOLOGY Reason for Consultation arrhythmia Referring Provider: JONATHAN HOWARD MD Hx of Present Illness Dear Dr. Howard thank you for his referral. History was obtained from the patient in discussion with Dr. Howard review of the old, chart discussion with her son. This is a pleasant 76-year-old female with history of "congestive heart failure ", history of diabetes hypertension COPD who was seen for the first time at the [place] office yesterday. Patient states that she intermittently gets diarrhea. The last episode was a week ago. She was seen in his office for routine evaluation for the first time. She has had intermittent palpitation. EKG was done Dr. García's office which was personally reviewed as well as showed atrial fibrillation. Patient has been admitted for further workup. Initial potassium was only at 2.4. She is also 40 of Lasix twice daily and Zaroxolyn with no potassium supplement. She says she has been taking it because of her lower extremity edema. Patient denies any chest pain or pressure to me. She does have chronic shortness of breath. She says she probably snores all the time and she possibly has sleep apnea but she is not sure. His exertional tolerance is limited due to her shortness of breath. Allergies to Bactrim Social history patient does not smoke or drink. She reports that she has had heavy secondhand smoking. However according to the son does not through and her father smoked for you only very brief time. Medication was reviewed with the medical reconciliation sheet. Family history no reported early coronary artery disease Review of system as above mentioned plus shortness of breath chronically. Her weight has remained stable. She denies all except for above-mentioned. Constitutional: requiring O2 Eyes: No discharge ENT: No congestion Respiratory: No pleuritic pain, No wheezing Cardiovascular: No lightheadedness Gastrointestinal: pain (Left upper quadrant pain) Genitourinary: No bleeding Musculoskeletal: No back pain Skin: No laceration Neurologic: No focal-weakness Endocrine: No dry skin, No polydypsia Lymphatic: No lymphadema, No tender nodes Psychological: anxiety Social History Smoking Status: Never smoker Exam/Review of Systems Vital Signs Vitals Vital Signs Date Time Temp Pulse Resp B/P Pulse Ox O2 Delivery O2 Flow Rate FiO2 04/07/17 16:16 98.2 70 19 112/54 96 04/07/17 08:10 Nasal Cannula 2.0 Intake and Output 04/06/17 04/06/17 04/07/17 15:00 23:00 07:00 Intake Total 350 ml Balance 350 ml Exam General: OBESE female. no acute distress HEENT: NC/AT. pupils are equal. round. NECK: NO JVD. no stridor. CV: RRR. systolic murmur; no gallop or rubs. PULM: no wheezing or rhonchi. GI: SOFT, obese. NT, ND, no rebound or guarding Extremity: trace B/L LE edema. no clubbing. neuro: awake and alert, OX3. Psych: calm and pleasant rectal: deferred : normal ECG in Dr Quyen hearn afib ECG 04/06: NSR ST T abn c/w lat ischemia ECHO reviewed personally: 1. Lower limits of normal systolic function. Normal left ventricular cavity size. Normal left ventricular wall thickness. Ejection fraction is visually estimated at 65 %. Tissue Doppler/Mitral Doppler indices are indeterminate in this study due to the presence of atrial fibrillation. 2. There is mild enlargement of left atrium. 3. Mitral valve leaflets appear mildly thickened. Mild mitral annular calcification. Mild mitral valve prolapse involving the anterior mitral leaflet. Trace mitral regurgitation. 4. Normal appearance of the tricuspid valve. Unable to obtain RVSP due to minimal presence of tricuspid regurgitation. CXR clear lungs. Results Result Diagram: 04/07/17 0650 04/07/17 0649 Results 24 hrs Laboratory Tests Test 04/06/17 17:50 04/06/17 21:50 04/07/17 02:14 04/07/17 06:49 White Blood Count 11.1 #H Red Blood Count 5.18 Hemoglobin 15.6 Hematocrit 45.8 Mean Corpuscular Volume 88.4 Mean Corpuscular Hemoglobin 30.1 Mean Corpuscular Hemoglobin Concent 34.1 Red Cell Distribution Width 13.2 Platelet Count 349 Mean Platelet Volume 11.4 #H Neutrophils % 64.2 Lymphocytes % 25.6 Monocytes % 7.5 Eosinophils % 1.3 Basophils % 1.0 Nucleated Red Blood Cells % 0.0 Neutrophils # 7.1 Lymphocytes # 2.9 Monocytes # 0.8 Eosinophils # 0.2 Basophils # 0.1 Nucleated Red Blood Cells # 0.0 Prothrombin Time 12.3 Prothrombin Time Ratio 1.0 INR International Normalized Ratio 0.91 Activated Partial Thromboplast Time 25.2 Sodium Level 138 142 Potassium Level 2.4 *L 3.3 L Chloride Level 81 L 90 L Carbon Dioxide Level 36 H 39 H Anion Gap 23 H 16 # Blood Urea Nitrogen 28 H 24 H Creatinine 1.14 H 0.99 Glucose Level 355 H 204 # Calcium Level 9.7 8.9 Creatine Kinase 52 532 #H Creatine Kinase Index 4.6 1.8 Creatinine Kinase MB (Mass) 2.40 9.31 H Troponin I 0.050 0.057 B-Type Natriuretic Peptide 763 H Bedside Glucose 206 160 Total Bilirubin 0.3 Direct Bilirubin 0.00 Indirect Bilirubin 0.3 Aspartate Amino Transf (AST/SGOT) 38 Alanine Aminotransferase (ALT/SGPT) 32 Alkaline Phosphatase 66 Total Protein 6.1 Albumin 3.6 Globulin 2.50 Albumin/Globulin Ratio 1.44 Triglycerides Level 175 H Cholesterol Level 150 LDL Cholesterol, Calculated 83 HDL Cholesterol 32 L Cholesterol/HDL Ratio 4.6 Thyroid Stimulating Hormone (TSH) Pending Test 04/07/17 06:50 04/07/17 08:38 04/07/17 12:10 04/07/17 15:21 White Blood Count 9.1 Red Blood Count 4.38 Hemoglobin 13.2 Hematocrit 40.2 Mean Corpuscular Volume 91.8 Mean Corpuscular Hemoglobin 30.1 Mean Corpuscular Hemoglobin Concent 32.8 Red Cell Distribution Width 13.3 Platelet Count 268 # Mean Platelet Volume 11.4 H Neutrophils % 58.0 Lymphocytes % 28.5 Monocytes % 9.3 Eosinophils % 2.9 Basophils % 0.9 Nucleated Red Blood Cells % 0.0 Neutrophils # 5.3 Lymphocytes # 2.6 Monocytes # 0.8 Eosinophils # 0.3 Basophils # 0.1 Nucleated Red Blood Cells # 0.0 Hemoglobin A1c 11.5 H Bedside Glucose 193 209 75 Test 04/07/17 15:51 Bedside Glucose 118 Medications Medications Current Medications Lorazepam (Ativan) 0.5 mg Q8H PRN PO ANXIETY; Start 04/06/17 at 21:30 Ondansetron HCl (Zofran Inj) 4 mg Q6H PRN IV NAUSEA AND/OR VOMITING; Start at 21:30 Nitroglycerin (Nitroglycerin (Sl Tab) 0.4 Mg) 1 tab Q5M PRN SL CHEST PAIN; Start 04/06/17 at 21:30 Acetaminophen (Tylenol Tab) 650 mg Q6H PRN PO PAIN LEVEL 1-3 OR FEVER; Start at 21:30 Acetaminophen/ Hydrocodone Bitart ([place] (5/325)) 1 tab Q6H PRN PO PAIN LEVEL 4 -6; Start 04/06/17 at 21:30 Morphine Sulfate (morphine) 2 mg Q4H PRN IV PAIN LEVEL 7-10; Start 04/06/17 at 21:30 Docusate Sodium (Colace) 100 mg Q12H PRN PO CONSTIPATION; Start 04/06/17 at 21: 30 Magnesium Hydroxide (Milk Of Mag) 30 ml DAILY PRN PO CONSTIPATION; Start at 21:30 Bisacodyl (Dulcolax) 5 mg DAILY PRN PO CONSTIPATION; Start 04/06/17 at 21:30 Pantoprazole (Protonix Tab) 40 mg DAILY@06 PO ; Start 04/07/17 at 06:00 Enoxaparin Sodium (Lovenox) 40 mg DAILY SC Last administered on 04/07/17t 09:03 ; Admin Dose 40 MG; Start 04/07/17 at 09:00 Metoprolol Tartrate (Lopressor) 25 mg BID PO Last administered on 04/07/17 08: 48; Admin Dose 25 MG; Start 04/07/17 at 09:00 Albuterol (Ventolin Hfa) 2 puff Q4H PRN INH WHEEZING AND SOB; Start 04/06/17 at 21:30 Atorvastatin Calcium (Lipitor) 20 mg QAM PO Last administered on 04/07/17 08: 47; Admin Dose 20 MG; Start 04/07/17 at 09:00 Clopidogrel Bisulfate (plaVIX) 75 mg DAILY PO Last administered on 04/07/17 08 :47; Admin Dose 75 MG; Start 04/07/17 at 09:00 Duloxetine HCl (Cymbalta) 60 mg DAILY PO Last administered on 04/07/17 08:48; Admin Dose 60 MG; Start 04/07/17 at 09:00 Fluticasone Propionate (Flonase 0.05% Nasal) 1 spray DAILY NASAL Last administered on 04/07/17 08:46; Admin Dose 1 SPRAY; Start 04/07/17 at 09:00 Pregabalin (Lyrica) 50 mg TID PO Last administered on 04/07/17 12:11; Admin Dose 50 MG; Start 04/07/17 at 09:00 Salmeterol Xinafoate/ Fluticasone (Advair 250/50 Diskus) 1 inh BID INH Last administered on 04/07/17 08:46; Admin Dose 1 INH; Start 04/07/17 at 09:00 Valsartan (Diovan) 160 mg DAILY PO Last administered on 04/07/17 08:47; Admin Dose 160 MG; Start 04/07/17 at 09:00 Diagnostic Test (Pha) (Accu-Chek) 1 ea 02 XX Last administered on 04/07/17 02: 00; Admin Dose 1 EA; Start 04/07/17 at 02:00 Insulin Glargine (Lantus) 30 unit Q12 SC Last administered on 04/07/17 08:53; Admin Dose 30 UNIT; Start 04/06/17 at 21:30 Miscellaneous Information 1 ea NOTE XX ; Start 04/06/17 at 21:30 Glucose (Glutose) 15 gm Q15M PRN PO DECREASED GLUCOSE; Start 04/06/17 at 21:30 Glucose (Glutose) 22.5 gm Q15M PRN PO DECREASED GLUCOSE; Start 04/06/17 at 21: 30 Dextrose (D50w Syringe) 25 ml Q15M PRN IV DECREASED GLUCOSE; Start 04/06/17 at 21:30 Dextrose (D50w Syringe) 50 ml Q15M PRN IV DECREASED GLUCOSE; Start 04/06/17 at 21:30 Glucagon (Glucagen) 1 mg Q15M PRN IM DECREASED GLUCOSE; Start 04/06/17 at 21:30 Glucose (Glutose) 15 gm Q15M PRN BUCCAL DECREASED GLUCOSE; Start 04/06/17 at 21 :30 HAM GRIGGS MD Apr 07, 2017 16:44
[2017-04-07] MEDS: metFORMIN 500 MG TAB PO SCH (17:44)
--- NOTE | 2017-04-07 17:48 | CONS ---
Date/Time of Note Date/Time of Note DATE: 04/07/17 TIME: 17:37 Assessment/Plan Assessment/Plan Problems: (1) Type 2 diabetes mellitus with hyperglycemia Status: Chronic Comment: Pt. receiving 30 units lantus bid (although currently has only received 1 dose) and Novolog 10 units qac plus moderate scale. This has resulted in glucose levels below goal rapidly. Will decrease basal from 30 qam to 20 qam and continue Novolog 10 qac but w/ mild scale. Add linagliptin 5 mg daily and metformin 500 mg bid. Reeval tomorrow. Will follow. Qualifiers: Qualified Code: E11.65 - Type 2 diabetes mellitus with hyperglycemia, with long-term current use of insulin Consultation Date/Type/Reason Admit Date/Time 04/06/17 @ 1600 Date of Consultation: Apr 07, 2017 Type of Consultation: Endocrinology Reason for Consultation T2DM Out Of Control (OOC) Referring Provider: JONATHAN HOWARD MD Hx of Present Illness 76 y/o C F w/ h/o T2DM, HTN, hyperlipidemia, CHF (refuted by today's ECHO), COPD , LENNY, macular degeneration, abdominal hernia, OA, recurrent UTI, anxiety d/o in [facility] until yesterday when she went to see new MD for advice as PMD. New PMD found her to be diaphoretic and "generally not well-appearing." Performed EKG and found A-fib w/ RVR. Pt. referred to [facility] where A-fib and also 2nd degree heart block Mobitz-1 confirmed. Pt. admitted. A1c > 11% and pt. w/ erratic glycemic control since admit. Endo consulted. Constitutional: no complaints, requiring O2 Eyes: no complaints ENT: no complaints Respiratory: no complaints, No wheezing Cardiovascular: no complaints Gastrointestinal: pain (Left upper quadrant pain) Genitourinary: no complaints Musculoskeletal: no complaints Neurologic: no complaints Psychological: anxiety Past Medical History Medical History: congestive heart failure, diabetes, high cholesterol, hypertension, urinary tract infection, other (anxiety, COPD, LENNY, macular degeneration, OA, hernias) Past Surgical History Past Surgical Hx: other (renovascular surgery) Family History Significant Family History: other (CHF both parents) Social History b. 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 , , 1 child Alcohol Use: none Smoking Status: Never smoker Drug Use: none Exam/Review of Systems Vital Signs Vitals VS - Last 72 Hours, by Label Date Time Temp Pulse Resp B/P Pulse Ox O2 Delivery O2 Flow Rate FiO2 04/07/17 16:16 98.2 70 19 112/54 96 04/07/17 16:00 70 04/07/17 13:36 107 04/07/17 12:00 68 04/07/17 11:35 98.3 68 19 125/59 95 04/07/17 08:10 Nasal Cannula 2.0 04/07/17 08:00 78 04/07/17 07:33 98.4 69 19 140/64 99 04/07/17 04:48 80 04/07/17 04:22 97.8 79 20 137/64 97 04/07/17 00:43 83 04/07/17 00:24 97.9 76 20 134/60 96 04/06/17 23:30 Nasal Cannula 2.0 04/06/17 22:47 95 04/06/17 22:33 98.3 73 20 131/60 93 04/06/17 20:30 98.3 74 17 129/84 98 Room Air 04/06/17 18:36 98.3 89 17 116/73 98 Room Air 04/06/17 17:49 Nasal Cannula 4 04/06/17 17:26 98.2 104 18 112/53 96 Vital Signs Date Time Temp Pulse Resp B/P Pulse Ox O2 Delivery O2 Flow Rate FiO2 04/07/17 16:16 98.2 70 19 112/54 96 04/07/17 08:10 Nasal Cannula 2.0 Intake and Output 04/06/17 04/06/17 04/07/17 14:59 22:59 06:59 Intake Total 350 ml Balance 350 ml Exam Constitutional: alert, obese, oriented Psych: nl mood/affect, no complaints Eyes: EOMI, PERRL, nl conjunctiva, nl lids, nl sclera ENMT: mucosa pink and moist, nl external ears & nose Neck: non-tender, supple, No bruits, No masses, No thyromegaly Respiratory: clear to auscultation, normal air movement Cardiovascular: nl pulses, regular rate and rhythm, No edema, No murmurs/extra sounds, No rub Gastrointestinal: bowel sounds, nl liver, spleen, non-tender, soft, No mass, No rebound or guarding Musculoskeletal: nl extremities to inspection Extremities: normal pulses, No clubbing, No cyanosis, No edema 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: 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, nl mental status, nl speech, nl strength Additional Comments Bedside Glucose - 72 Hours Test 04/06/17 21:50 04/07/17 02:14 04/07/17 08:38 04/07/17 12:10 Bedside Glucose 206mg/dL (70-220) 160mg/dL (70-220) 193mg/dL (70-220) 209mg/dL (70-220) Test 04/07/17 15:21 04/07/17 15:51 04/07/17 17:17 Bedside Glucose 75mg/dL (70-220) 118mg/dL (70-220) 242mg/dL (70-220) H Results Result Diagram: 04/07/17 0650 04/07/17 0649 Results 24 hrs Laboratory Tests Test 04/06/17 17:50 04/06/17 21:50 04/07/17 02:14 04/07/17 06:49 White Blood Count 11.1 #H Red Blood Count 5.18 Hemoglobin 15.6 Hematocrit 45.8 Mean Corpuscular Volume 88.4 Mean Corpuscular Hemoglobin 30.1 Mean Corpuscular Hemoglobin Concent 34.1 Red Cell Distribution Width 13.2 Platelet Count 349 Mean Platelet Volume 11.4 #H Neutrophils % 64.2 Lymphocytes % 25.6 Monocytes % 7.5 Eosinophils % 1.3 Basophils % 1.0 Nucleated Red Blood Cells % 0.0 Neutrophils # 7.1 Lymphocytes # 2.9 Monocytes # 0.8 Eosinophils # 0.2 Basophils # 0.1 Nucleated Red Blood Cells # 0.0 Prothrombin Time 12.3 Prothrombin Time Ratio 1.0 INR International Normalized Ratio 0.91 Activated Partial Thromboplast Time 25.2 Sodium Level 138 142 Potassium Level 2.4 *L 3.3 L Chloride Level 81 L 90 L Carbon Dioxide Level 36 H 39 H Anion Gap 23 H 16 # Blood Urea Nitrogen 28 H 24 H Creatinine 1.14 H 0.99 Glucose Level 355 H 204 # Calcium Level 9.7 8.9 Creatine Kinase 52 532 #H Creatine Kinase Index 4.6 1.8 Creatinine Kinase MB (Mass) 2.40 9.31 H Troponin I 0.050 0.057 B-Type Natriuretic Peptide 763 H Bedside Glucose 206 160 Total Bilirubin 0.3 Direct Bilirubin 0.00 Indirect Bilirubin 0.3 Aspartate Amino Transf (AST/SGOT) 38 Alanine Aminotransferase (ALT/SGPT) 32 Alkaline Phosphatase 66 Total Protein 6.1 Albumin 3.6 Globulin 2.50 Albumin/Globulin Ratio 1.44 Triglycerides Level 175 H Cholesterol Level 150 LDL Cholesterol, Calculated 83 HDL Cholesterol 32 L Cholesterol/HDL Ratio 4.6 Thyroid Stimulating Hormone (TSH) Pending Test 04/07/17 06:50 04/07/17 08:38 04/07/17 12:10 04/07/17 15:21 White Blood Count 9.1 Red Blood Count 4.38 Hemoglobin 13.2 Hematocrit 40.2 Mean Corpuscular Volume 91.8 Mean Corpuscular Hemoglobin 30.1 Mean Corpuscular Hemoglobin Concent 32.8 Red Cell Distribution Width 13.3 Platelet Count 268 # Mean Platelet Volume 11.4 H Neutrophils % 58.0 Lymphocytes % 28.5 Monocytes % 9.3 Eosinophils % 2.9 Basophils % 0.9 Nucleated Red Blood Cells % 0.0 Neutrophils # 5.3 Lymphocytes # 2.6 Monocytes # 0.8 Eosinophils # 0.3 Basophils # 0.1 Nucleated Red Blood Cells # 0.0 Hemoglobin A1c 11.5 H Bedside Glucose 193 209 75 Test 04/07/17 15:51 04/07/17 17:17 Bedside Glucose 118 242 H Medications Medications Current Medications Lorazepam (Ativan) 0.5 mg Q8H PRN PO ANXIETY; Start 04/06/17 at 21:30 Ondansetron HCl (Zofran Inj) 4 mg Q6H PRN IV NAUSEA AND/OR VOMITING; Start at 21:30 Nitroglycerin (Nitroglycerin (Sl Tab) 0.4 Mg) 1 tab Q5M PRN SL CHEST PAIN; Start 04/06/17 at 21:30 Acetaminophen (Tylenol Tab) 650 mg Q6H PRN PO PAIN LEVEL 1-3 OR FEVER; Start at 21:30 Acetaminophen/ Hydrocodone Bitart ([place] (5/325)) 1 tab Q6H PRN PO PAIN LEVEL 4 -6; Start 04/06/17 at 21:30 Morphine Sulfate (morphine) 2 mg Q4H PRN IV PAIN LEVEL 7-10; Start 04/06/17 at 21:30 Docusate Sodium (Colace) 100 mg Q12H PRN PO CONSTIPATION; Start 04/06/17 at 21: 30 Magnesium Hydroxide (Milk Of Mag) 30 ml DAILY PRN PO CONSTIPATION; Start at 21:30 Bisacodyl (Dulcolax) 5 mg DAILY PRN PO CONSTIPATION; Start 04/06/17 at 21:30 Pantoprazole (Protonix Tab) 40 mg DAILY@06 PO ; Start 04/07/17 at 06:00 Enoxaparin Sodium (Lovenox) 40 mg DAILY SC Last administered on 04/07/17 09:03 ; Admin Dose 40 MG; Start 04/07/17 at 09:00 Metoprolol Tartrate (Lopressor) 25 mg BID PO Last administered on 04/07/17 08: 48; Admin Dose 25 MG; Start 04/07/17 at 09:00 Albuterol (Ventolin Hfa) 2 puff Q4H PRN INH WHEEZING AND SOB; Start 04/06/17 at 21:30 Atorvastatin Calcium (Lipitor) 20 mg QAM PO Last administered on 04/07/17 08: 47; Admin Dose 20 MG; Start 04/07/17 at 09:00 Clopidogrel Bisulfate (plaVIX) 75 mg DAILY PO Last administered on 04/07/17 08 :47; Admin Dose 75 MG; Start 04/07/17 at 09:00 Duloxetine HCl (Cymbalta) 60 mg DAILY PO Last administered on 04/07/17 08:48; Admin Dose 60 MG; Start 04/07/17 at 09:00 Fluticasone Propionate (Flonase 0.05% Nasal) 1 spray DAILY NASAL Last administered on 04/07/17 08:46; Admin Dose 1 SPRAY; Start 04/07/17 at 09:00 Pregabalin (Lyrica) 50 mg TID PO Last administered on 04/07/17 12:11; Admin Dose 50 MG; Start 04/07/17 at 09:00 Salmeterol Xinafoate/ Fluticasone (Advair 250/50 Diskus) 1 inh BID INH Last administered on 04/07/17 08:46; Admin Dose 1 INH; Start 04/07/17 at 09:00 Valsartan (Diovan) 160 mg DAILY PO Last administered on 04/07/17 08:47; Admin Dose 160 MG; Start 04/07/17 at 09:00 Diagnostic Test (Pha) (Accu-Chek) 1 ea XX Last administered on 04/07/17t 02: 00; Admin Dose 1 EA; Start 04/07/17 at 02:00 Miscellaneous Information 1 ea NOTE XX ; Start 04/06/17 at 21:30 Glucose (Glutose) 15 gm Q15M PRN PO DECREASED GLUCOSE; Start 04/06/17 at 21:30 Glucose (Glutose) 22.5 gm Q15M PRN PO DECREASED GLUCOSE; Start 04/06/17 at 21: 30 Dextrose (D50w Syringe) 25 ml Q15M PRN IV DECREASED GLUCOSE; Start 04/06/17 at 21:30 Dextrose (D50w Syringe) 50 ml Q15M PRN IV DECREASED GLUCOSE; Start 04/06/17 at 21:30 Glucagon (Glucagen) 1 mg Q15M PRN IM DECREASED GLUCOSE; Start 04/06/17 at 21:30 Glucose (Glutose) 15 gm Q15M PRN BUCCAL DECREASED GLUCOSE; Start 04/06/17 at 21 :30 Insulin Glargine (Lantus) 20 unit DAILY@08 SC ; Start 04/08/17 at 08:00 Diagnostic Test (Pha) (Accu-Chek) 1 ea XX ; Start 04/08/17 at 02:00 Linagliptin (Tradjenta) 5 mg DAILY PO ; Start 04/08/17 at 09:00 LUCERO GONZALES MD Apr 07, 2017 17:48
[2017-04-07 18:20] LABS: ADD UMIC YES; UR ASCORBIC ACID NEGATIVE (NEGATIVE); UR BACTERIA FEW /HPF (NONE SEEN); UR BILIRUBIN (Dip) NEGATIVE (NEGATIVE); UR BLOOD (Dip) NEGATIVE (NEGATIVE); UR CLARITY CLOUDY (CLEAR); UR COLOR YELLOW (YELLOW); UR GLUCOSE (Dip) 3+ mg/dL (NEGATIVE); UR KETONES (Dip) NEGATIVE (NEGATIVE); UR LEUKOCYTE ESTERASE (Dip) 3+ Leu/ul (NEGATIVE); UR NITRITE (Dip) NEGATIVE (NEGATIVE); UR NONSQUAMOUS EPITHELIAL CELL 5 /HPF (NONE SEEN); UR RBC 39 /HPF (0-5); UR SPECIFIC GRAVITY (Dip) 1.016 (1.003-1.030); UR SQUAMOUS EPITHELIAL CELL MODERATE /HPF (FEW); UR TOTAL PROTEIN (Dip) 1+ mg/dl (NEGATIVE); UR UROBILINOGEN (Dip) NEGATIVE (NEGATIVE); UR WBC CLUMPS FEW /HPF (NONE SEEN)
[2017-04-07 18:23] LABS: PROTEIN/CREAT RATIO 0.13 RATIO
--- NOTE | 2017-04-07 18:44 | CONS ---
Date/Time of Note Date/Time of Note DATE: 04/07/17 TIME: 18:40 Assessment/Plan Assessment/Plan Additional Assessment/Plan 1. Left upper quadrant pain 2. Thickening of the stomach lining rule out gastritis I doubt malignancy 3. Morbid obesity 4. Electrolyte imbalance 5. Diabetes mellitus 6. COPD 7. Hypertension 8. Atrial fibrillation paroxysmal secondary to probably hypokalemia. Plan Continue PPI Low-dose of Reglan for possible diabetic gastroparesis which may also give her the pain. Patient may need EGD to rule out gastritis or peptic ulcer disease but given multiple comorbidities she is a moderate risk for sedation. Consultation Date/Type/Reason Admit Date/Time 04/06/17 @ 1600 Reason for Consultation Left upper quadrant pain for last few week Hx of Present Illness 76-year-old female with a history of diabetes mellitus hypertension obesity, COPD came to the ER complaining of diaphoresis weakness and had abnormal EKG. Patient was evaluated and found to have electrolyte imbalance with hypokalemia and paroxysmal atrial fibrillation related to electrolyte imbalance which got corrected and patient is now in normal sinus rhythm. GI consult was called in for the left upper quadrant pain for last few weeks. No nausea no vomiting no chest pain no shortness of breath no GI bleeding no weight loss. No radiation of pain to the part of the body. Patient had ultrasound done which showed thickening of the stomach lining. Diagnosis of gastritis was raised. Constitutional: no complaints, requiring O2 Eyes: no complaints ENT: no complaints Respiratory: no complaints, No wheezing Cardiovascular: no complaints Gastrointestinal: pain (Left upper quadrant pain) Genitourinary: no complaints Musculoskeletal: no complaints Neurologic: no complaints Psychological: nl mood/affect, no complaints Past Medical History Medical History: congestive heart failure, diabetes, high cholesterol, hypertension, urinary tract infection, other (anxiety, COPD, LENNY, macular degeneration, OA, hernias) Past Surgical History Past Surgical Hx: other (renovascular surgery) Social History Alcohol Use: none Smoking Status: Never smoker Drug Use: none Exam/Review of Systems Vital Signs Vitals Vital Signs Date Time Temp Pulse Resp B/P Pulse Ox O2 Delivery O2 Flow Rate FiO2 04/07/17 16:16 98.2 70 19 112/54 96 04/07/17 08:10 Nasal Cannula 2.0 Intake and Output 04/06/17 04/06/17 04/07/17 15:00 23:00 07:00 Intake Total 350 ml Balance 350 ml Exam Constitutional: alert, oriented, well developed Psych: nl mood/affect, no complaints Head: atraumatic, normocephalic Eyes: EOMI, PERRL, nl conjunctiva, nl lids, nl sclera ENMT: nl external ears & nose, nl lips & teeth, nl nasal mucosa & septum Neck: non-tender, supple Respiratory: clear to auscultation, normal air movement Cardiovascular: nl pulses, regular rate and rhythm Gastrointestinal: nl liver, spleen, non-tender, soft Musculoskeletal: nl extremities to inspection, nl gait and stance Extremities: normal pulses 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, nl mental status, nl speech, nl strength Skin: nl turgor, No rash or lesions Lymph: nl lymph nodes Results Result Diagram: 04/07/17 0650 04/07/17 0649 Results 24 hrs Laboratory Tests Test 04/06/17 21:50 04/07/17 02:14 04/07/17 06:49 04/07/17 06:50 Bedside Glucose 206 160 Sodium Level 142 Potassium Level 3.3 L Chloride Level 90 L Carbon Dioxide Level 39 H Anion Gap 16 # Blood Urea Nitrogen 24 H Creatinine 0.99 Glucose Level 204 # Calcium Level 8.9 Total Bilirubin 0.3 Direct Bilirubin 0.00 Indirect Bilirubin 0.3 Aspartate Amino Transf (AST/SGOT) 38 Alanine Aminotransferase (ALT/SGPT) 32 Alkaline Phosphatase 66 Creatine Kinase 532 #H Creatine Kinase Index 1.8 Creatinine Kinase MB (Mass) 9.31 H Troponin I 0.057 Total Protein 6.1 Albumin 3.6 Globulin 2.50 Albumin/Globulin Ratio 1.44 Triglycerides Level 175 H Cholesterol Level 150 LDL Cholesterol, Calculated 83 HDL Cholesterol 32 L Cholesterol/HDL Ratio 4.6 Thyroid Stimulating Hormone (TSH) Pending White Blood Count 9.1 Red Blood Count 4.38 Hemoglobin 13.2 Hematocrit 40.2 Mean Corpuscular Volume 91.8 Mean Corpuscular Hemoglobin 30.1 Mean Corpuscular Hemoglobin Concent 32.8 Red Cell Distribution Width 13.3 Platelet Count 268 # Mean Platelet Volume 11.4 H Neutrophils % 58.0 Lymphocytes % 28.5 Monocytes % 9.3 Eosinophils % 2.9 Basophils % 0.9 Nucleated Red Blood Cells % 0.0 Neutrophils # 5.3 Lymphocytes # 2.6 Monocytes # 0.8 Eosinophils # 0.3 Basophils # 0.1 Nucleated Red Blood Cells # 0.0 Hemoglobin A1c 11.5 H Test 04/07/17 08:38 04/07/17 12:10 04/07/17 15:21 04/07/17 15:51 Bedside Glucose 193 209 75 118 Test 04/07/17 17:10 04/07/17 17:17 Urine Color YELLOW Urine Clarity CLOUDY A Urine pH 5.0 Urine Specific [place] 1.016 Urine Ketones NEGATIVE Urine Nitrite NEGATIVE Urine Bilirubin NEGATIVE Urine Urobilinogen NEGATIVE Urine Leukocyte Esterase 3+ H Urine Microscopic RBC 39 H Urine Microscopic WBC > 182 H Urine Squamous Epithelial Cells MODERATE Urine Bacteria FEW A Urine Hemoglobin NEGATIVE Urine Random Creatinine 103.41 Urine Protein/Creatinine Ratio 0.13 Urine Glucose 3+ H Urine Total Protein 14.0 H Bedside Glucose 242 H Medications Medications Current Medications Lorazepam (Ativan) 0.5 mg Q8H PRN PO ANXIETY; Start 04/06/17 at 21:30 Ondansetron HCl (Zofran Inj) 4 mg Q6H PRN IV NAUSEA AND/OR VOMITING; Start at 21:30 Nitroglycerin (Nitroglycerin (Sl Tab) 0.4 Mg) 1 tab Q5M PRN SL CHEST PAIN; Start 04/06/17 at 21:30 Acetaminophen (Tylenol Tab) 650 mg Q6H PRN PO PAIN LEVEL 1-3 OR FEVER; Start at 21:30 Acetaminophen/ Hydrocodone Bitart ([place] (5/325)) 1 tab Q6H PRN PO PAIN LEVEL 4 -6; Start 04/06/17 at 21:30 Morphine Sulfate (morphine) 2 mg Q4H PRN IV PAIN LEVEL 7-10; Start 04/06/17 at 21:30 Docusate Sodium (Colace) 100 mg Q12H PRN PO CONSTIPATION; Start 04/06/17 at 21: 30 Magnesium Hydroxide (Milk Of Mag) 30 ml DAILY PRN PO CONSTIPATION; Start at 21:30 Bisacodyl (Dulcolax) 5 mg DAILY PRN PO CONSTIPATION; Start 04/06/17 at 21:30 Pantoprazole (Protonix Tab) 40 mg DAILY@06 PO ; Start 04/07/17 at 06:00 Enoxaparin Sodium (Lovenox) 40 mg DAILY SC Last administered on 04/07/17t 09:03 ; Admin Dose 40 MG; Start 04/07/17 at 09:00 Metoprolol Tartrate (Lopressor) 25 mg BID PO Last administered on 04/07/17 08: 48; Admin Dose 25 MG; Start 04/07/17 at 09:00 Albuterol (Ventolin Hfa) 2 puff Q4H PRN INH WHEEZING AND SOB; Start 04/06/17 at 21:30 Atorvastatin Calcium (Lipitor) 20 mg QAM PO Last administered on 04/07/17 08: 47; Admin Dose 20 MG; Start 04/07/17 at 09:00 Clopidogrel Bisulfate (plaVIX) 75 mg DAILY PO Last administered on 04/07/17 08 :47; Admin Dose 75 MG; Start 04/07/17 at 09:00 Duloxetine HCl (Cymbalta) 60 mg DAILY PO Last administered on 04/07/17 08:48; Admin Dose 60 MG; Start 04/07/17 at 09:00 Fluticasone Propionate (Flonase 0.05% Nasal) 1 spray DAILY NASAL Last administered on 04/07/17 08:46; Admin Dose 1 SPRAY; Start 04/07/17 at 09:00 Pregabalin (Lyrica) 50 mg TID PO Last administered on 04/07/17 12:11; Admin Dose 50 MG; Start 04/07/17 at 09:00 Salmeterol Xinafoate/ Fluticasone (Advair 250/50 Diskus) 1 inh BID INH Last administered on 04/07/17 08:46; Admin Dose 1 INH; Start 04/07/17 at 09:00 Valsartan (Diovan) 160 mg DAILY PO Last administered on 04/07/17 08:47; Admin Dose 160 MG; Start 04/07/17 at 09:00 Diagnostic Test (Pha) (Accu-Chek) 1 ea 02 XX Last administered on 04/07/17 02: 00; Admin Dose 1 EA; Start 04/07/17 at 02:00 Miscellaneous Information 1 ea NOTE XX ; Start 04/06/17 at 21:30 Glucose (Glutose) 15 gm Q15M PRN PO DECREASED GLUCOSE; Start 04/06/17 at 21:30 Glucose (Glutose) 22.5 gm Q15M PRN PO DECREASED GLUCOSE; Start 04/06/17 at 21: 30 Dextrose (D50w Syringe) 25 ml Q15M PRN IV DECREASED GLUCOSE; Start 04/06/17 at 21:30 Dextrose (D50w Syringe) 50 ml Q15M PRN IV DECREASED GLUCOSE; Start 04/06/17 at 21:30 Glucagon (Glucagen) 1 mg Q15M PRN IM DECREASED GLUCOSE; Start 04/06/17 at 21:30 Glucose (Glutose) 15 gm Q15M PRN BUCCAL DECREASED GLUCOSE; Start 04/06/17 at 21 :30 Insulin Glargine (Lantus) 20 unit DAILY@08 SC ; Start 04/08/17 at 08:00 Diagnostic Test (Pha) (Accu-Chek) 1 ea 02 XX ; Start 04/08/17 at 02:00 Linagliptin (Tradjenta) 5 mg DAILY PO ; Start 04/08/17 at 09:00 YADIRA FOX MD Apr 07, 2017 18:44
[2017-04-08] VITALS (9 sets, daily range): BP systolic 120–146; BP diastolic 58–70; PULSE 58–69; RESP 18–20
[2017-04-08] MEDS ORDERED: ACCU-CHEK XX SCH (02:00)
[2017-04-08] MEDS: ACCU-CHEK XX SCH (02:30)
[2017-04-08] MEDS: PANTOPRAZOLE (EC) 40 MG TAB PO SCH (05:40)
[2017-04-08] MEDS: FUROSEMIDE 40 MG TAB PO SCH (05:40)
[2017-04-08] MEDS ORDERED: INSULIN GLARGINE [LANtus] 3 ML PEN SC SCH (08:00)
[2017-04-08 08:06] LABS: BASOPHIL # 0.1 10^3/ul (0.0-0.1); EOSINOPHILS # 0.3 10^3/ul (0.0-0.5); EOSINOPHILS % 3.4 % (0.0-7.0); HEMATOCRIT 41.8 % (37.0-47.0); HEMOGLOBIN 13.6 g/dl (12.0-16.0); LYMPHOCYTES % 31.9 % (15.0-51.0); MEAN CORPUSCULAR HEMOGLOBIN 29.6 pg (29.0-33.0); MEAN CORPUSCULAR HGB CONC 32.5 g/dl (32.0-37.0); MEAN CORPUSCULAR VOLUME 91.1 fl (82.0-101.0); MEAN PLATELET VOLUME 11.5 fl (7.4-10.4); MONOCYTE # 0.8 10^3/ul (0.3-0.9); MONOCYTES % 8.9 % (0.0-11.0); NEUTROPHILS % 54.4 % (39.0-77.0); PLATELET COUNT 273 10^3/UL (140-415); RED BLOOD COUNT 4.59 10^6/ul (4.20-5.40); RED CELL DISTRIBUTION WIDTH 13.3 % (11.5-14.5); WHITE BLOOD COUNT 9.2 10^3/ul (4.8-10.8)
[2017-04-08 08:40] LABS: CALCIUM 9.3 mg/dl (8.4-10.2); CREATININE 1.13 mg/dl (0.44-1.00)
[2017-04-08 08:41] LABS: MAGNESIUM 1.7 mg/dl (1.7-2.5); PHOSPHORUS 4.8 mg/dl (2.5-4.9)
[2017-04-08] MEDS: INSULIN ASPART [NOVOLOG] 3 ML PEN SC SCH ×4 (09:00→12:00)
[2017-04-08] MEDS ORDERED: LINAGLIPTIN 5 MG TABLET PO SCH (09:00)
[2017-04-08] MEDS: SALMETEROL/FLUTICASONE 250/50 INHA INH SCH (09:00)
[2017-04-08 09:05] LABS: POTASSIUM 2.8 mmol/L (3.5-5.1)
[2017-04-08] MEDS: metFORMIN 500 MG TAB PO SCH (09:11)
[2017-04-08] MEDS: ENOXAPARIN 40 MG/0.4 ML SYG SC SCH (09:15)
[2017-04-08] MEDS: DULOXETINE 30 MG CAP DR PO SCH (09:16)
[2017-04-08] MEDS: PREGABALIN 25 MG CAP PO SCH ×2 (09:16→13:06)
[2017-04-08] MEDS: CLOPIDOGREL 75 MG TAB PO SCH (09:16)
[2017-04-08] MEDS: METOPROLOL 25 MG TAB PO SCH (09:17)
[2017-04-08] MEDS: VALSARTAN 160 MG TAB PO SCH (09:17)
[2017-04-08] MEDS: ATORVASTATIN 20 MG TAB PO SCH (09:17)
[2017-04-08] MEDS: FLUTICASONE 0.05% 16 GM NAS SPRAY NASAL SCH (09:21)
[2017-04-08] MEDS ORDERED: POTASSIUM CHLORIDE (SR) 20 MEQ TAB PO STA ×2 (09:30→11:45)
--- NOTE | 2017-04-08 10:29 | PN ---
Date/Time of Note Date/Time of Note DATE: 04/08/17 TIME: 10:27 Assessment/Plan VTE Prophylaxis VTE Prophylaxis Intervention: SCD's Lines/Catheters IV [facility] Lock Urinary Cath still in place: No Assessment/Plan Assessment/Plan 1. Pafib with RVR: appears to be related to severe hypo K 2. Reported history of CHF: At this time there is no evidence of CHF. 3. DM: poorly controlled with markedly elevated HgA1c 4. HTN: controlled well 5. episode of short asymptomatic NSVT 6. Hypo K due to diuretics. 7. obesity and probably obesity hypoventilation syndrome. 8. likely LENNY Recommendations: CONT PLAVIX CONT betablocker. replace lytes including aldactone Cont lasix 40q d and aldactone 25 qd. cont ARB Endocrine consulation has been called already for better DM managment consider outpt sleep study will consider outpt stress testing for abnormal ECG and multiple risk factors. but at this time pt denies any angina. Subjective 24 Hr Interval Summary Free Text/Dictation The patient wit no complaints Exam/Review of Systems Vital Signs Vitals Vital Signs Date Time Temp Pulse Resp B/P Pulse Ox O2 Delivery O2 Flow Rate FiO2 04/08/17 08:13 59 04/08/17 07:44 98.2 18 146/63 95 04/07/17 20:47 Nasal Cannula 2.0 Intake and Output 04/07/17 04/07/17 04/08/17 15:00 23:00 07:00 Intake Total 500 ml 500 ml Balance 500 ml 500 ml Results Result Diagram: 04/08/17 0706 04/08/17 0706 Results 24 hrs Laboratory Tests Test 04/07/17 12:10 04/07/17 15:21 04/07/17 15:51 04/07/17 17:10 Bedside Glucose 209 75 118 Urine Color YELLOW Urine Clarity CLOUDY A Urine pH 5.0 Urine Specific [place] 1.016 Urine Ketones NEGATIVE Urine Nitrite NEGATIVE Urine Bilirubin NEGATIVE Urine Urobilinogen NEGATIVE Urine Leukocyte Esterase 3+ H Urine Microscopic RBC 39 H Urine Microscopic WBC > 182 H Urine Squamous Epithelial Cells MODERATE Urine Bacteria FEW A Urine Hemoglobin NEGATIVE Urine Random Creatinine 103.41 Urine Protein/Creatinine Ratio 0.13 Urine Glucose 3+ H Urine Total Protein 14.0 H Test 04/07/17 17:17 04/07/17 20:46 04/08/17 07:06 04/08/17 08:33 Bedside Glucose 242 H 138 147 White Blood Count 9.2 Red Blood Count 4.59 Hemoglobin 13.6 Hematocrit 41.8 Mean Corpuscular Volume 91.1 Mean Corpuscular Hemoglobin 29.6 Mean Corpuscular Hemoglobin Concent 32.5 Red Cell Distribution Width 13.3 Platelet Count 273 Mean Platelet Volume 11.5 H Neutrophils % 54.4 Lymphocytes % 31.9 Monocytes % 8.9 Eosinophils % 3.4 Basophils % 1.0 Nucleated Red Blood Cells % 0.0 Neutrophils # 5.0 Lymphocytes # 3.0 H Monocytes # 0.8 Eosinophils # 0.3 Basophils # 0.1 Nucleated Red Blood Cells # 0.0 Sodium Level 140 Potassium Level 2.8 *L Chloride Level 88 L Carbon Dioxide Level 41 *H Anion Gap 14 Blood Urea Nitrogen 30 H Creatinine 1.13 H Glucose Level 144 # Calcium Level 9.3 Phosphorus Level 4.8 Magnesium Level 1.7 Medications Medications Current Medications Lorazepam (Ativan) 0.5 mg Q8H PRN PO ANXIETY; Start 04/06/17 at 21:30 Ondansetron HCl (Zofran Inj) 4 mg Q6H PRN IV NAUSEA AND/OR VOMITING; Start at 21:30 Nitroglycerin (Nitroglycerin (Sl Tab) 0.4 Mg) 1 tab Q5M PRN SL CHEST PAIN; Start 04/06/17 at 21:30 Acetaminophen (Tylenol Tab) 650 mg Q6H PRN PO PAIN LEVEL 1-3 OR FEVER; Start at 21:30 Acetaminophen/ Hydrocodone Bitart ([place] (5/325)) 1 tab Q6H PRN PO PAIN LEVEL 4 -6; Start 04/06/17 at 21:30 Morphine Sulfate (morphine) 2 mg Q4H PRN IV PAIN LEVEL 7-10; Start 04/06/17 at 21:30 Docusate Sodium (Colace) 100 mg Q12H PRN PO CONSTIPATION; Start 04/06/17 at 21: 30 Magnesium Hydroxide (Milk Of Mag) 30 ml DAILY PRN PO CONSTIPATION; Start at 21:30 Bisacodyl (Dulcolax) 5 mg DAILY PRN PO CONSTIPATION; Start 04/06/17 at 21:30 Pantoprazole (Protonix Tab) 40 mg DAILY@06 PO Last administered on 04/08/17 05 :40; Admin Dose 40 MG; Start 04/07/17 at 06:00 Enoxaparin Sodium (Lovenox) 40 mg DAILY SC Last administered on 04/08/17 09:15 ; Admin Dose 40 MG; Start 04/07/17 at 09:00 Metoprolol Tartrate (Lopressor) 25 mg BID PO Last administered on 04/08/17 09: 17; Admin Dose 25 MG; Start 04/07/17 at 09:00 Albuterol (Ventolin Hfa) 2 puff Q4H PRN INH WHEEZING AND SOB; Start 04/06/17 at 21:30 Atorvastatin Calcium (Lipitor) 20 mg QAM PO Last administered on 04/08/17 09: 17; Admin Dose 20 MG; Start 04/07/17 at 09:00 Clopidogrel Bisulfate (plaVIX) 75 mg DAILY PO Last administered on 04/08/17 09 :16; Admin Dose 75 MG; Start 04/07/17 at 09:00 Duloxetine HCl (Cymbalta) 60 mg DAILY PO Last administered on 04/08/17 09:16; Admin Dose 60 MG; Start 04/07/17 at 09:00 Fluticasone Propionate (Flonase 0.05% Nasal) 1 spray DAILY NASAL Last administered on 04/08/17 09:21; Admin Dose 1 SPRAY; Start 04/07/17 at 09:00 Pregabalin (Lyrica) 50 mg TID PO Last administered on 04/08/17 09:16; Admin Dose 50 MG; Start 04/07/17 at 09:00 Salmeterol Xinafoate/ Fluticasone (Advair 250/50 Diskus) 1 inh BID INH Last administered on 04/07/17 08:46; Admin Dose 1 INH; Start 04/07/17 at 09:00 Valsartan (Diovan) 160 mg DAILY PO Last administered on 04/08/17 09:17; Admin Dose 160 MG; Start 04/07/17 at 09:00 Diagnostic Test (Pha) (Accu-Chek) 1 ea 02 XX Last administered on 04/07/17 02: 00; Admin Dose 1 EA; Start 04/07/17 at 02:00 Miscellaneous Information 1 ea NOTE XX ; Start 04/06/17 at 21:30 Glucose (Glutose) 15 gm Q15M PRN PO DECREASED GLUCOSE; Start 04/06/17 at 21:30 Glucose (Glutose) 22.5 gm Q15M PRN PO DECREASED GLUCOSE; Start 04/06/17 at 21: 30 Dextrose (D50w Syringe) 25 ml Q15M PRN IV DECREASED GLUCOSE; Start 04/06/17 at 21:30 Dextrose (D50w Syringe) 50 ml Q15M PRN IV DECREASED GLUCOSE; Start 04/06/17 at 21:30 Glucagon (Glucagen) 1 mg Q15M PRN IM DECREASED GLUCOSE; Start 04/06/17 at 21:30 Glucose (Glutose) 15 gm Q15M PRN BUCCAL DECREASED GLUCOSE; Start 04/06/17 at 21 :30 Insulin Glargine (Lantus) 20 unit DAILY@08 SC Last administered on 04/08/17 09 :13; Admin Dose 20 UNIT; Start 04/08/17 at 08:00 Diagnostic Test (Pha) (Accu-Chek) 1 ea 02 XX ; Start 04/08/17 at 02:00 Linagliptin (Tradjenta) 5 mg DAILY PO Last administered on 04/08/17 09:16; Admin Dose 5 MG; Start 04/08/17 at 09:00 HECTOR HEMPHILL MD Apr 08, 2017 10:29
--- NOTE | 2017-04-08 11:57 | PDOCDIS ---
Discharge Instructions CONDITION Patient Condition: Stable HOME CARE INSTRUCTIONS: Special Diet: 1800 shelli ada ACTIVITY: Activity Restrictions: Slowly Increase Activity FOLLOW UP/APPOINTMENTS Follow-up Plan follow up with PMD, Dr. Connor, Dr. Stewart and Dr. Wilkinson, see attached prescriptions JONATHAN HOWARD MD Apr 08, 2017 11:57
[2017-04-08] MEDS ORDERED: LEVO500T72 PO (12:07)
[2017-04-08] MEDS ORDERED: LINA5TAB PO (12:07)
[2017-04-08] MEDS ORDERED: METO-448 PO (12:07)
[2017-04-08] MEDS ORDERED: FURO40TA4 PO (12:07)
[2017-04-08] MEDS ORDERED: SPIR25TA PO (12:07)
[2017-04-08] MEDS ORDERED: METF500T PO ×2 (12:07→16:06)
[2017-04-08] MEDS ORDERED: INSU100I22 SC ×2 (12:11→16:06)
[2017-04-08] MEDS ORDERED: INSU300I SQ ×2 (12:11→16:06)
--- NOTE | 2017-04-08 12:21 | CONS ---
Date/Time of Note Date/Time of Note DATE: 04/08/17 TIME: 12:21 Assessment/Plan Assessment/Plan Chief Complaint/Hosp Course 76-year-old female with a history of diabetes mellitus hypertension obesity, COPD came to the ER complaining of diaphoresis weakness and had abnormal EKG. Patient was evaluated and found to have electrolyte imbalance with hypokalemia and paroxysmal atrial fibrillation related to electrolyte imbalance which got corrected and patient is now in normal sinus rhythm. GI consult was called in for the left upper quadrant pain for last few weeks. No nausea no vomiting no chest pain no shortness of breath no GI bleeding no weight loss. No radiation of pain to the part of the body. Patient had ultrasound done which showed thickening of the stomach lining. Diagnosis of gastritis was raised. Problems: Additional Assessment/Plan 1. Left upper quadrant pain, resolved 2. Thickening of the stomach lining rule out gastritis I doubt malignancy 3. Morbid obesity 4. Electrolyte imbalance 5. Diabetes mellitus 6. COPD 7. Hypertension 8. Atrial fibrillation paroxysmal secondary to probably hypokalemia. Plan Continue PPI Low-dose of Reglan for possible diabetic gastroparesis which may also give her the pain. Patient may need EGD to rule out gastritis or peptic ulcer disease but given multiple comorbidities she is a moderate risk for sedation. Weight loss We will follow-up as an outpatient Consultation Date/Type/Reason Admit Date/Time Apr 06, 2017 at 19:12 Initial Consult Date 04/07/17 Type of Consultation: Endocrinology Referring Provider: JONATHAN HOWARD MD 24 HR Interval Summary Constitutional: improved, no complaints Exam/Review of Systems Vital Signs Vitals Vital Signs Date Time Temp Pulse Resp B/P Pulse Ox O2 Delivery O2 Flow Rate FiO2 04/08/17 12:15 58 04/08/17 11:52 98.4 19 123/58 96 04/08/17 09:02 Nasal Cannula 2.0 Intake and Output 04/07/17 04/07/17 04/08/17 15:00 23:00 07:00 Intake Total 500 ml 500 ml Balance 500 ml 500 ml Exam Constitutional: alert, oriented, well developed Psych: nl mood/affect, no complaints Head: atraumatic, normocephalic Eyes: EOMI, PERRL, nl conjunctiva, nl lids, nl sclera ENMT: nl external ears & nose, nl lips & teeth, nl nasal mucosa & septum Neck: non-tender, supple Respiratory: clear to auscultation, normal air movement Cardiovascular: nl pulses, regular rate and rhythm Gastrointestinal: nl liver, spleen, non-tender, soft Musculoskeletal: nl extremities to inspection, nl gait and stance Extremities: normal pulses 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: MOSAIC TILE [employer]KER II-XII intact, nl mental status, nl speech, nl strength Skin: nl turgor, No rash or lesions Lymph: nl lymph nodes Results Result Diagram: 04/08/17 0706 04/08/17 0706 Results 24 hrs Laboratory Tests Test 04/07/17 15:21 04/07/17 15:51 04/07/17 17:10 04/07/17 17:17 Bedside Glucose 75 118 242 H Urine Color YELLOW Urine Clarity CLOUDY A Urine pH 5.0 Urine Specific [place] 1.016 Urine Ketones NEGATIVE Urine Nitrite NEGATIVE Urine Bilirubin NEGATIVE Urine Urobilinogen NEGATIVE Urine Leukocyte Esterase 3+ H Urine Microscopic RBC 39 H Urine Microscopic WBC > 182 H Urine Squamous Epithelial Cells MODERATE Urine Bacteria FEW A Urine Hemoglobin NEGATIVE Urine Random Creatinine 103.41 Urine Protein/Creatinine Ratio 0.13 Urine Glucose 3+ H Urine Total Protein 14.0 H Test 04/07/17 20:46 04/08/17 07:06 04/08/17 08:33 Bedside Glucose 138 147 White Blood Count 9.2 Red Blood Count 4.59 Hemoglobin 13.6 Hematocrit 41.8 Mean Corpuscular Volume 91.1 Mean Corpuscular Hemoglobin 29.6 Mean Corpuscular Hemoglobin Concent 32.5 Red Cell Distribution Width 13.3 Platelet Count 273 Mean Platelet Volume 11.5 H Neutrophils % 54.4 Lymphocytes % 31.9 Monocytes % 8.9 Eosinophils % 3.4 Basophils % 1.0 Nucleated Red Blood Cells % 0.0 Neutrophils # 5.0 Lymphocytes # 3.0 H Monocytes # 0.8 Eosinophils # 0.3 Basophils # 0.1 Nucleated Red Blood Cells # 0.0 Sodium Level 140 Potassium Level 2.8 *L Chloride Level 88 L Carbon Dioxide Level 41 *H Anion Gap 14 Blood Urea Nitrogen 30 H Creatinine 1.13 H Glucose Level 144 # Calcium Level 9.3 Phosphorus Level 4.8 Magnesium Level 1.7 Medications Medications Current Medications Lorazepam (Ativan) 0.5 mg Q8H PRN PO ANXIETY; Start 04/06/17 at 21:30 Ondansetron HCl (Zofran Inj) 4 mg Q6H PRN IV NAUSEA AND/OR VOMITING; Start at 21:30 Nitroglycerin (Nitroglycerin (Sl Tab) 0.4 Mg) 1 tab Q5M PRN SL CHEST PAIN; Start 04/06/17 at 21:30 Acetaminophen (Tylenol Tab) 650 mg Q6H PRN PO PAIN LEVEL 1-3 OR FEVER; Start at 21:30 Acetaminophen/ Hydrocodone Bitart ([place] (5/325)) 1 tab Q6H PRN PO PAIN LEVEL 4 -6; Start 04/06/17 at 21:30 Morphine Sulfate (morphine) 2 mg Q4H PRN IV PAIN LEVEL 7-10; Start 04/06/17 at 21:30 Docusate Sodium (Colace) 100 mg Q12H PRN PO CONSTIPATION; Start 04/06/17 at 21: 30 Magnesium Hydroxide (Milk Of Mag) 30 ml DAILY PRN PO CONSTIPATION; Start at 21:30 Bisacodyl (Dulcolax) 5 mg DAILY PRN PO CONSTIPATION; Start 04/06/17 at 21:30 Pantoprazole (Protonix Tab) 40 mg DAILY@06 PO Last administered on 04/08/17 05 :40; Admin Dose 40 MG; Start 04/07/17 at 06:00 Enoxaparin Sodium (Lovenox) 40 mg DAILY SC Last administered on 04/08/17 09:15 ; Admin Dose 40 MG; Start 04/07/17 at 09:00 Metoprolol Tartrate (Lopressor) 25 mg BID PO Last administered on 04/08/17 09: 17; Admin Dose 25 MG; Start 04/07/17 at 09:00 Albuterol (Ventolin Hfa) 2 puff Q4H PRN INH WHEEZING AND SOB; Start 04/06/17 at 21:30 Atorvastatin Calcium (Lipitor) 20 mg QAM PO Last administered on 04/08/17 09: 17; Admin Dose 20 MG; Start 04/07/17 at 09:00 Clopidogrel Bisulfate (plaVIX) 75 mg DAILY PO Last administered on 04/08/17 09 :16; Admin Dose 75 MG; Start 04/07/17 at 09:00 Duloxetine HCl (Cymbalta) 60 mg DAILY PO Last administered on 04/08/17 09:16; Admin Dose 60 MG; Start 04/07/17 at 09:00 Fluticasone Propionate (Flonase 0.05% Nasal) 1 spray DAILY NASAL Last administered on 04/08/17 09:21; Admin Dose 1 SPRAY; Start 04/07/17 at 09:00 Pregabalin (Lyrica) 50 mg TID PO Last administered on 04/08/17 09:16; Admin Dose 50 MG; Start 04/07/17 at 09:00 Salmeterol Xinafoate/ Fluticasone (Advair 250/50 Diskus) 1 inh BID INH Last administered on 04/07/17 08:46; Admin Dose 1 INH; Start 04/07/17 at 09:00 Valsartan (Diovan) 160 mg DAILY PO Last administered on 04/08/17 09:17; Admin Dose 160 MG; Start 04/07/17 at 09:00 Diagnostic Test (Pha) (Accu-Chek) 1 ea 02 XX Last administered on 04/07/17 02: 00; Admin Dose 1 EA; Start 04/07/17 at 02:00 Miscellaneous Information 1 ea NOTE XX ; Start 04/06/17 at 21:30 Glucose (Glutose) 15 gm Q15M PRN PO DECREASED GLUCOSE; Start 04/06/17 at 21:30 Glucose (Glutose) 22.5 gm Q15M PRN PO DECREASED GLUCOSE; Start 04/06/17 at 21: 30 Dextrose (D50w Syringe) 25 ml Q15M PRN IV DECREASED GLUCOSE; Start 04/06/17 at 21:30 Dextrose (D50w Syringe) 50 ml Q15M PRN IV DECREASED GLUCOSE; Start 04/06/17 at 21:30 Glucagon (Glucagen) 1 mg Q15M PRN IM DECREASED GLUCOSE; Start 04/06/17 at 21:30 Glucose (Glutose) 15 gm Q15M PRN BUCCAL DECREASED GLUCOSE; Start 04/06/17 at 21 :30 Insulin Glargine (Lantus) 20 unit DAILY@08 SC Last administered on 04/08/17 09 :13; Admin Dose 20 UNIT; Start 04/08/17 at 08:00 Diagnostic Test (Pha) (Accu-Chek) 1 ea 02 XX ; Start 04/08/17 at 02:00 Linagliptin 5 mg 5 mg DAILY PO Last administered on 04/08/17t 09:16; Admin Dose 5 MG; Start 04/08/17 at 09:00 Ceftriaxone Sodium (Rocephin) 50 ml @ 100 mls/hr Q24H IVPB ; Start 04/08/17 at 13:00 Furosemide (Lasix) 40 mg DAILY PO ; Start 04/09/17 at 09:00 Spironolactone (Aldactone) 25 mg DAILY PO ; Start 04/09/17 at 09:00 YADIRA FOX MD Apr 08, 2017 12:21
--- NOTE | 2017-04-08 12:23 | DS ---
Date/Time of Note Date/Time of Note DATE: 04/08/17 TIME: 12:12 Discharge Summary Admission/Discharge Info Admit Date/Time Apr 06, 2017 at 19:12 Discharge Date/Time Discharge Diagnosis Questionable brief episode of atrial fibrillation Arrhythmia Diabetes mellitus type 2 poorly controlled Hypertension Urinary tract infection Obese state with a BMI of 35 Likely obstructive sleep apnea obesity hypoventilation syndrome Severe hypokalemia Questionable COPD secondhand smoking Diaphoresis Depression and anxiety disorder Diabetic neuropathy C-spine disc disease Patient Condition: Stable Consults Cardiology GI and Endocrinology Procedures Echocardiogram see report showed preserved ejection fraction Abdominal ultrasound see report Hx of Present Illness Patient is a 76-year-old obese female, with history of diabetes mellitus, hypertension, congestive heart failure, osteoarthritis, dyslipidemia, macular degeneration with limited vision in the left eye. 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 The patient presented to my office today this afternoon for the first visit as a new patient. Upon evaluation EKG revealed atrial fibrillation with evidence of ST depressions in the lateral leads consistent with ischemia. Her heart was irregular and she was noted to be diaphoretic. I instructed her to go to the emergency department for further evaluation. In the ER she was found to have severe hypokalemia with potassium of 2.4. Glucose level of 350. An EKG reveals Mob[place] type I arrhythmia. It was decided to admit the patient for further care. Patient did report palpitations at times and complains of left upper quadrant pain which has been there for quite some time. She did state that she had multiple imaging tests and they could not find why she has that pain. I have spoken to her son Darrel and informed him of patient's plan of care. Hospital Course 76-year-old female with a history of diabetes mellitus hypertension obesity, COPD came to the ER complaining of diaphoresis weakness and had abnormal EKG. Patient was evaluated and found to have electrolyte imbalance with hypokalemia and paroxysmal atrial fibrillation related to electrolyte imbalance which got corrected and patient is now in normal sinus rhythm. GI consult was called in for the left upper quadrant pain for last few weeks. No nausea no vomiting no chest pain no shortness of breath no GI bleeding no weight loss. No radiation of pain to the part of the body. Patient had ultrasound done which showed thickening of the stomach lining. Diagnosis of gastritis was raised. I reviewed patient's CT scan which was done recently at [facility] which showed the same. It showed thickened gastric mucosa. Patient will definitely need to have an EGD done in the near future. During patient hospitalization I consulted multiple physicians including , Dr. Connor , and Dr. Wilkinson. Patient's hemoglobin is 11.5 basically her diabetes is out of control. We have adjusted her diabetic medication and will continue so as an outpatient. I have spoken to her son Darrel on multiple occasions. He is aware of patient's condition and plan of care. Patient will likely need nuclear stress. Patient does have some evidence of ischemia on EKG. Patient denies any chest pain or shortness of breath currently. Patient will be discharged with attached prescriptions. Instructed to follow- up with all the above physicians and me within 1-2 weeks. Home Meds Active Scripts Insulin Aspart (Novolog FlexPen) 100 Unit/1 Ml Insuln.pen, 10 UNITS SC WITH MEALS for 30 Days, EA Prov:MAHAD HOWARD MD 04/08/17 Insulin Glargine,Hum.rec.anlog ([place] Solostar) 300 Unit/1 Ml Insuln.pen, 20 UNIT SQ DAILY for 30 Days Prov:MAHAD HOWARD MD 04/08/17 Levofloxacin* (Levaquin*) 500 Mg Tablet, 500 MG PO DAILY for 7 Days, TAB Prov:AMHAD HOWARD MD 04/08/17 Metformin Hcl (Glucophage) 500 Mg Tablet, 500 MG PO BID WITH MEALS for 30 Days, TAB Prov:MAHAD HOWARD MD 04/08/17 Linagliptin (TRADJENTA) 5 Mg Tablet, 5 MG PO DAILY for 30 Days, TAB Prov:MAHAD HOWARD MD 04/08/17 Furosemide* (Furosemide*) 40 Mg Tablet, 40 MG PO DAILY for 30 Days, TAB Prov:MAHAD HOWARD MD 04/08/17 Spironolactone* (Aldactone*) 25 Mg Tablet, 25 MG PO DAILY for 30 Days, TAB Prov:MAHAD HOWARD MD 04/08/17 Metoprolol Tartrate* (Lopressor*) 25 Mg Tab, 25 MG PO BID for 30 Days, #60 TAB Prov:MAHAD HOWARD MD 04/08/17 Reported Medications Duloxetine Hcl* (Duloxetine Hcl*) 60 Mg Capsule., 60 MG PO DAILY, #30 CAP 7/27/17 Atorvastatin Calcium* (Atorvastatin Calcium*) 20 Mg Tablet, 20 MG PO QAM, #30 TAB 04/06/17 Salmeterol Xinaf/Fluticasone* (Advair*) 250-50 Diskus Inhaler, 1 INH INHALATION BID, #1 INHALER 04/06/17 Clopidogrel Bisulfate* (Clopidogrel Bisulfate*) 75 Mg Tablet, 75 MG PO DAILY, # 30 TAB 04/06/17 Pregabalin* (Lyrica*) 50 Mg Capsule, 50 MG PO TID, CAP 04/06/17 Albuterol Sulfate* (Proair HFA*) 8.5 Gm Hfa.aer.ad, 2 PUFF INH Q4H Y for WHEEZING AND SOB, #1 INHALER 04/06/17 Valsartan* (Diovan*) 160 Mg Tablet, 160 MG PO DAILY, TAB 11/09/14 Fluticasone Propionate* (Flonase* Nasal) 50 Mcg/[place] - 16 Gm [place].susp, 1 SPRAY NASAL DAILY, SPRAY TO EACH NOSTRIL 11/09/14 Insulin Aspart (Novolog FlexPen) 100 Unit/1 Ml Insuln.pen, 0 SC SLIDING SCALE AC , EA TAKE BEFOR MEALS,START WITH 15 UNITS 11/09/14 Discontinued Reported Medications Insulin Glargine,Hum.rec.anlog ([place] Solostalana) 300 Unit/1 Ml Insuln.pen, 80 UNIT SQ QAM 04/06/17 Furosemide* (Furosemide*) 40 Mg Tablet, 40 MG PO BID, TAB 04/06/17 Metolazone* (Metolazone*) 5 Mg Tablet, 5 MG PO DAILY, TAB QAM 11/09/14 Gabapentin* (Neurontin*) 600 Mg Tablet, 600 MG PO TID, TAB 11/09/14 Ferrous Sulfate* (Ferrous Sulfate*) 325 Mg Tablet, 325 MG PO DAILY, TAB 11/09/14 Dexlansoprazole (Dexilant) 60 Mg Jassi., 60 MG PO DAILY, CAP 11/09/14 Citalopram Hydrobromide* (Celexa*) 20 Mg Tablet, 30 MG PO DAILY, TAB 11/09/14 Canagliflozin (Invokana) 100 Mg Tablet, 100 MG PO DAILY, TAB 3/1/15 Hydrocodone Bit-Acetaminophen* ([place]*) 10-325 Mg Tablet, 1 TAB PO Q4H Y for PAIN, TAB 11/09/14 Magnesium Oxide* (Mag-Oxide*) 400 Mg Tablet, 400 MG PO DAILY, TAB 11/09/14 Insulin Detemir* (Levemir*) 100 Unit/1 Ml Insuln.pen, 50 UNIT SC QHS, EA 11/09/14 Latanoprost (Xalatan) 2.5 Ml Drops, 1 DROP OP QHS 11/09/14 Atorvastatin Calcium* (Atorvastatin Calcium*) 20 Mg Tablet, 20 MG PO HS, TAB 11/09/14 Primary Care Provider Mahad Howard MD Time spent on discharge: > 30 minutes Pending Labs Laboratory Tests Test 04/07/17 15:21 04/07/17 15:51 04/07/17 17:10 04/07/17 17:17 Bedside Glucose 75mg/dL (70-220) 118mg/dL (70-220) 242mg/dL (70-220) Urine Color YELLOW (YELLOW) Urine Clarity CLOUDY (CLEAR) Urine pH 5.0 (5.0-9.0) Urine Specific [place] 1.016 (1.003-1.030) Urine Ketones NEGATIVEmg/dL (NEGATIVE) Urine Nitrite NEGATIVEmg/dL (NEGATIVE) Urine Bilirubin NEGATIVEmg/dL (NEGATIVE) Urine Urobilinogen NEGATIVEmg/dL (NEGATIVE) Urine Leukocyte Esterase 3+Sam/ul (NEGATIVE) Urine Microscopic RBC 39/HPF (0-5) Urine Microscopic WBC > 182/HPF (0-5) Urine Squamous Epithelial Cells MODERATE/HPF (FEW) Urine Bacteria FEW/HPF (NONE SEEN) Urine Hemoglobin NEGATIVEmg/dL (NEGATIVE) Urine Random Creatinine 103.41mg/dl (20-320) Urine Protein/Creatinine Ratio 0.13RATIO Urine Glucose 3+mg/dL (NEGATIVE) Urine Total Protein 14.0mg/dl (0.0-11.9) Test 04/07/17 20:46 04/08/17 07:06 04/08/17 08:33 Bedside Glucose 138mg/dL (70-220) 147mg/dL (70-220) White Blood Count 9.210^3/ul (4.8-10.8) Red Blood Count 4.5910^6/ul (4.20-5.40) Hemoglobin 13.6g/dl (12.0-16.0) Hematocrit 41.8% (37.0-47.0) Mean Corpuscular Volume 91.1fl (82.0-101.0) Mean Corpuscular Hemoglobin 29.6pg (29.0-33.0) Mean Corpuscular Hemoglobin Concent 32.5g/dl (32.0-37.0) Red Cell Distribution Width 13.3% (11.5-14.5) Platelet Count 65783^3/UL (140-415) Mean Platelet Volume 11.5fl (7.4-10.4) Neutrophils % 54.4% (39.0-77.0) Lymphocytes % 31.9% (15.0-51.0) Monocytes % 8.9% (0.0-11.0) Eosinophils % 3.4% (0.0-7.0) Basophils % 1.0% (0.0-2.0) Nucleated Red Blood Cells % 0.0/100WBC (0.0-0.0) Neutrophils # 5.010^3/ul (1.6-7.5) Lymphocytes # 3.010^3/ul (0.8-2.9) Monocytes # 0.810^3/ul (0.3-0.9) Eosinophils # 0.310^3/ul (0.0-0.5) Basophils # 0.110^3/ul (0.0-0.1) Nucleated Red Blood Cells # 0.010^3/ul (0.0-0.0) Sodium Level 140mmol/L (135-144) Potassium Level 2.8mmol/L (3.5-5.1) Chloride Level 88mmol/L (97-110) Carbon Dioxide Level 41mmol/L (21-31) Anion Gap 14 (8-16) Blood Urea Nitrogen 30mg/dl (7-20) Creatinine 1.13mg/dl (0.44-1.00) Glucose Level 144mg/dl (70-220) Calcium Level 9.3mg/dl (8.4-10.2) Phosphorus Level 4.8mg/dl (2.5-4.9) Magnesium Level 1.7mg/dl (1.7-2.5) Microbiology Date/Time Source Procedure Growth Status 04/07/17 17:10 Straight Cath Urine Urine Culture - Preliminary Resulted MAHAD HOWARD MD Apr 08, 2017 12:23
[2017-04-08] MEDS ORDERED: CEFTRIAXONE 1 GM/50 ML (PMX) 50 ML IVPB SCH (13:00)
[2017-04-08] MEDS ORDERED: NOVO3I SC (16:06)
--- NOTE | 2017-04-08 16:14 | CONS ---
Date/Time of Note Date/Time of Note DATE: 04/08/17 TIME: 16:09 Assessment/Plan Assessment/Plan Problems: (1) Type 2 diabetes mellitus with hyperglycemia Status: Chronic Comment: Glycemic control improved. However, pt. refusing mealtime insulin when her glucose is NL. Pt. will require more DM education but unfortunately educator not available on the weekends. Pt. ready for d/c home and I agree w/ this. Cont. metformin and titrate up to 1,000 mg bid after 1 week. Cont. linagliptin 5 mg/d. Cont. toujeo but decrease dose to 20 units daily. Ok to decrease dose of Novolog to 8 units qac but pt. advised MUST be taken before each meal, even if BG is NL. Pt. understands. F/u w/ me in my office. Qualifiers: Diabetes mellitus continuous churn buttermaker insulin use: with correction use Qualified Code : E11.65 - Type 2 diabetes mellitus with hyperglycemia, with long-term current use of insulin Consultation Date/Type/Reason Admit Date/Time Apr 06, 2017 at 19:12 Initial Consult Date 04/07/17 Type of Consultation: Endocrinology Reason for Consultation T2DM OOC Referring Provider: JONATHAN HOWARD MD 24 HR Interval Summary Constitutional: improved (ready to go home), no complaints Detailed Summary Respiratory: no complaints Cardiovascular: no complaints Gastrointestinal: no complaints Genitourinary: no complaints Musculoskeletal: no complaints Neurologic: no complaints Exam/Review of Systems Vital Signs Vitals VS - Last 72 Hours, by Label Date Time Temp Pulse Resp B/P Pulse Ox O2 Delivery O2 Flow Rate FiO2 04/08/17 12:15 58 04/08/17 11:52 98.4 69 19 123/58 96 04/08/17 09:02 Nasal Cannula 2.0 04/08/17 08:13 59 04/08/17 07:44 98.2 61 18 146/63 95 04/08/17 04:23 61 04/08/17 03:47 98.3 98 20 120/65 97 04/08/17 00:20 69 04/07/17 23:48 98.3 81 20 124/58 98 04/07/17 20:47 Nasal Cannula 2.0 04/07/17 20:21 83 04/07/17 19:54 98.2 98 20 127/60 97 04/07/17 16:16 98.2 70 19 112/54 96 04/07/17 16:00 70 04/07/17 13:36 107 04/07/17 12:00 68 04/07/17 11:35 98.3 68 19 125/59 95 04/07/17 08:10 Nasal Cannula 2.0 04/07/17 08:00 78 04/07/17 07:33 98.4 69 19 140/64 99 04/07/17 04:48 80 04/07/17 04:22 97.8 79 20 137/64 97 04/07/17 00:43 83 04/07/17 00:24 97.9 76 20 134/60 96 04/06/17 23:30 Nasal Cannula 2.0 04/06/17 22:47 95 04/06/17 22:33 98.3 73 20 131/60 93 04/06/17 20:30 98.3 74 17 129/84 98 Room Air 04/06/17 18:36 98.3 89 17 116/73 98 Room Air 04/06/17 17:49 Nasal Cannula 4 04/06/17 17:26 98.2 104 18 112/53 96 Vital Signs Date Time Temp Pulse Resp B/P Pulse Ox O2 Delivery O2 Flow Rate FiO2 04/08/17 12:15 58 04/08/17 11:52 98.4 19 123/58 96 04/08/17 09:02 Nasal Cannula 2.0 Intake and Output 04/07/17 04/07/17 04/08/17 15:00 23:00 07:00 Intake Total 500 ml 500 ml Balance 500 ml 500 ml Exam Constitutional: alert, obese, oriented Respiratory: clear to auscultation, normal air movement Cardiovascular: nl pulses, regular rate and rhythm, No edema, No murmurs/extra sounds, No rub Gastrointestinal: bowel sounds, nl liver, spleen, non-tender, soft, No mass, No rebound or guarding Musculoskeletal: nl extremities to inspection Extremities: normal pulses, No clubbing, No cyanosis, No edema 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: 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, nl mental status, nl speech, nl strength Additional Comments Bedside Glucose - 72 Hours Test 04/06/17 21:50 04/07/17 02:14 04/07/17 08:38 04/07/17 12:10 Bedside Glucose 206mg/dL (70-220) 160mg/dL (70-220) 193mg/dL (70-220) 209mg/dL (70-220) Test 04/07/17 15:21 04/07/17 15:51 04/07/17 17:17 04/07/17 20:46 Bedside Glucose 75mg/dL (70-220) 118mg/dL (70-220) 242mg/dL (70-220) H 138mg/dL (70-220) Test 04/08/17 08:33 04/08/17 12:40 Bedside Glucose 147mg/dL (70-220) 109mg/dL (70-220) Results Result Diagram: 04/08/17 0706 04/08/17 0706 Results 24 hrs Laboratory Tests Test 04/07/17 17:10 04/07/17 17:17 04/07/17 20:46 04/08/17 07:06 Urine Color YELLOW Urine Clarity CLOUDY A Urine pH 5.0 Urine Specific [place] 1.016 Urine Ketones NEGATIVE Urine Nitrite NEGATIVE Urine Bilirubin NEGATIVE Urine Urobilinogen NEGATIVE Urine Leukocyte Esterase 3+ H Urine Microscopic RBC 39 H Urine Microscopic WBC > 182 H Urine Squamous Epithelial Cells MODERATE Urine Bacteria FEW A Urine Hemoglobin NEGATIVE Urine Random Creatinine 103.41 Urine Protein/Creatinine Ratio 0.13 Urine Glucose 3+ H Urine Total Protein 14.0 H Bedside Glucose 242 H 138 White Blood Count 9.2 Red Blood Count 4.59 Hemoglobin 13.6 Hematocrit 41.8 Mean Corpuscular Volume 91.1 Mean Corpuscular Hemoglobin 29.6 Mean Corpuscular Hemoglobin Concent 32.5 Red Cell Distribution Width 13.3 Platelet Count 273 Mean Platelet Volume 11.5 H Neutrophils % 54.4 Lymphocytes % 31.9 Monocytes % 8.9 Eosinophils % 3.4 Basophils % 1.0 Nucleated Red Blood Cells % 0.0 Neutrophils # 5.0 Lymphocytes # 3.0 H Monocytes # 0.8 Eosinophils # 0.3 Basophils # 0.1 Nucleated Red Blood Cells # 0.0 Sodium Level 140 Potassium Level 2.8 *L Chloride Level 88 L Carbon Dioxide Level 41 *H Anion Gap 14 Blood Urea Nitrogen 30 H Creatinine 1.13 H Glucose Level 144 # Calcium Level 9.3 Phosphorus Level 4.8 Magnesium Level 1.7 Test 04/08/17 08:33 04/08/17 12:40 Bedside Glucose 147 109 Medications Medications Current Medications Lorazepam (Ativan) 0.5 mg Q8H PRN PO ANXIETY; Start 04/06/17 at 21:30 Ondansetron HCl (Zofran Inj) 4 mg Q6H PRN IV NAUSEA AND/OR VOMITING; Start at 21:30 Nitroglycerin (Nitroglycerin (Sl Tab) 0.4 Mg) 1 tab Q5M PRN SL CHEST PAIN; Start 04/06/17 at 21:30 Acetaminophen (Tylenol Tab) 650 mg Q6H PRN PO PAIN LEVEL 1-3 OR FEVER; Start at 21:30 Acetaminophen/ Hydrocodone Bitart ([place] (5/325)) 1 tab Q6H PRN PO PAIN LEVEL 4 -6; Start 04/06/17 at 21:30 Morphine Sulfate (morphine) 2 mg Q4H PRN IV PAIN LEVEL 7-10; Start 04/06/17 at 21:30 Docusate Sodium (Colace) 100 mg Q12H PRN PO CONSTIPATION; Start 04/06/17 at 21: 30 Magnesium Hydroxide (Milk Of Mag) 30 ml DAILY PRN PO CONSTIPATION; Start at 21:30 Bisacodyl (Dulcolax) 5 mg DAILY PRN PO CONSTIPATION; Start 04/06/17 at 21:30 Pantoprazole (Protonix Tab) 40 mg DAILY@06 PO Last administered on 04/08/17 05 :40; Admin Dose 40 MG; Start 04/07/17 at 06:00 Enoxaparin Sodium (Lovenox) 40 mg DAILY SC Last administered on 04/08/17 09:15 ; Admin Dose 40 MG; Start 04/07/17 at 09:00 Metoprolol Tartrate (Lopressor) 25 mg BID PO Last administered on 04/08/17 09: 17; Admin Dose 25 MG; Start 04/07/17 at 09:00 Albuterol (Ventolin Hfa) 2 puff Q4H PRN INH WHEEZING AND SOB; Start 04/06/17 at 21:30 Atorvastatin Calcium (Lipitor) 20 mg QAM PO Last administered on 04/08/17 09: 17; Admin Dose 20 MG; Start 04/07/17 at 09:00 Clopidogrel Bisulfate (plaVIX) 75 mg DAILY PO Last administered on 04/08/17 09 :16; Admin Dose 75 MG; Start 04/07/17 at 09:00 Duloxetine HCl (Cymbalta) 60 mg DAILY PO Last administered on 04/08/17 09:16; Admin Dose 60 MG; Start 04/07/17 at 09:00 Fluticasone Propionate (Flonase 0.05% Nasal) 1 spray DAILY NASAL Last administered on 04/08/17 09:21; Admin Dose 1 SPRAY; Start 04/07/17 at 09:00 Pregabalin (Lyrica) 50 mg TID PO Last administered on 04/08/17 13:06; Admin Dose 50 MG; Start 04/07/17 at 09:00 Salmeterol Xinafoate/ Fluticasone (Advair 250/50 Diskus) 1 inh BID INH Last administered on 04/07/17 08:46; Admin Dose 1 INH; Start 04/07/17 at 09:00 Valsartan (Diovan) 160 mg DAILY PO Last administered on 04/08/17 09:17; Admin Dose 160 MG; Start 04/07/17 at 09:00 Diagnostic Test (Pha) (Accu-Chek) 1 ea 02 XX Last administered on 04/07/17 02: 00; Admin Dose 1 EA; Start 04/07/17 at 02:00 Miscellaneous Information 1 ea NOTE XX ; Start 04/06/17 at 21:30 Glucose (Glutose) 15 gm Q15M PRN PO DECREASED GLUCOSE; Start 04/06/17 at 21:30 Glucose (Glutose) 22.5 gm Q15M PRN PO DECREASED GLUCOSE; Start 04/06/17 at 21: 30 Dextrose (D50w Syringe) 25 ml Q15M PRN IV DECREASED GLUCOSE; Start 04/06/17 at 21:30 Dextrose (D50w Syringe) 50 ml Q15M PRN IV DECREASED GLUCOSE; Start 04/06/17 at 21:30 Glucagon (Glucagen) 1 mg Q15M PRN IM DECREASED GLUCOSE; Start 04/06/17 at 21:30 Glucose (Glutose) 15 gm Q15M PRN BUCCAL DECREASED GLUCOSE; Start 04/06/17 at 21 :30 Insulin Glargine (Lantus) 20 unit DAILY@08 SC Last administered on 04/08/17 09 :13; Admin Dose 20 UNIT; Start 04/08/17 at 08:00 Diagnostic Test (Pha) (Accu-Chek) 1 ea 02 XX ; Start 04/08/17 at 02:00 Linagliptin 5 mg 5 mg DAILY PO Last administered on 04/08/17 09:16; Admin Dose 5 MG; Start 04/08/17 at 09:00 Ceftriaxone Sodium (Rocephin) 50 ml @ 100 mls/hr Q24H IVPB Last administered on 04/08/17 13:06; Admin Dose 100 MLS/HR; Start 04/08/17 at 13:00 Furosemide (Lasix) 40 mg DAILY PO ; Start 04/09/17 at 09:00 Spironolactone (Aldactone) 25 mg DAILY PO ; Start 04/09/17 at 09:00 LUCERO GONZALES MD Apr 08, 2017 16:13
[2017-04-09] MEDS ORDERED: FUROSEMIDE 40 MG TAB PO SCH (09:00)
[2017-04-09] MEDS ORDERED: SPIRONOLACTONE 25 MG TAB PO SCH (09:00)
[2017-04-10 10:04] LABS: THYROID STIMULATING HORMONE 1.81 MIU/L (0.465-4.680)
== END 2017-04-08 18:10 | disposition home or self-care (01) | DRG 310 ==
LOC: E/R 17:23 → MS4 19:12
PROVIDERS: ADMIT Internal Medicine; ATTEND Internal Medicine
DX: I49.9 Cardiac arrhythmia, unspecified (principal); E11.40 Type 2 diabetes mellitus with diabetic neuropathy, unspecified; E11.8 Type 2 diabetes mellitus with unspecified complications; R00.2 Palpitations; I48.91 Unspecified atrial fibrillation; E87.6 Hypokalemia; G47.33 Obstructive sleep apnea (adult) (pediatric); I44.1 Atrioventricular block, second degree; Z68.35 Body mass index [BMI] 35.0-35.9, adult; R61 Generalized hyperhidrosis; F41.8 Other specified anxiety disorders; Z79.4 Long term (current) use of insulin; J44.9 Chronic obstructive pulmonary disease, unspecified; E66.01 Morbid (severe) obesity due to excess calories
CPT/HCPCS: 36415; 71010; 76700; 80048; 80053; 80061; 81001; 81003; 82270; 82533; 82550; 82553; 82570; 82962; 83036; 83735; 83880; 84100; 84443; 84484; 85025; 85610; 85730; 87086; 93005; 93306; 93970; 96365; 96372; 96375; J0696; J1650; J1815; J3475; J3480; J7030

== ENCOUNTER 2017-07-25 09:11 | Observation (INO) | payer MEDICARE, OTHER ==
[2017-07-25] VITALS (21 sets, daily range): BP systolic 127–189; BP diastolic 48–112; PULSE 69–94; RESP 18–29; Ht 152.4 cm; Wt 82.3 kg
[~2017-07-25] VITALS: Ht 152.4 cm; Wt 82.3 kg
[2017-07-25] MEDS: ASPIRIN (EC) 81 MG TAB PO SCH (06:00)
[~2017-07-25 09:11] MED LIST changes: +ADV25050 INHALATION; +ALBU8.5H3 INH; -CANA100T PO; -CITA20TA11 PO; +CLOP75TA4 PO; -DEXL60CA2 PO; +DULO60CA59 PO; -FERR-55 PO; +FURO40TA4 PO; -GABA600T PO; -HYDR-762 PO; -INSU100I16 SC; +INSU300I SQ; -LATA2.5D9 OP; +LEVO500T72 PO; +LINA5TAB PO; -MAGN400T27 PO; +METF500T PO; +METO-448 PO; -METO5TAB65 PO; +NOVO3I SC; +PREG50CA PO; +SPIR25TA PO
[2017-07-25] MEDS ORDERED: ISOS30TA5 PO (10:13)
[2017-07-25] MEDS ORDERED: ASPI-664 PO (10:13)
[2017-07-25] MEDS ORDERED: CARV3.12 PO (10:14)
[2017-07-25] MEDS ORDERED: METF500T4 PO (10:15)
[2017-07-25] MEDS ORDERED: NOVO3I SC (10:16)
[2017-07-25] MEDS ORDERED: INSU300I SQ (10:16)
[2017-07-25] MEDS ORDERED: DEXL60CA2 PO (10:17)
[2017-07-25] MEDS ORDERED: UMEC62.5 IH (10:18)
[2017-07-25] MEDS ORDERED: CHOL20002 PO (10:18)
[2017-07-25 10:52] LABS: BASOPHIL # 0.1 10^3/ul (0.0-0.1); BASOPHILS % 0.9 % (0.0-2.0); EOSINOPHILS # 0.3 10^3/ul (0.0-0.5); EOSINOPHILS % 3.3 % (0.0-7.0); HEMATOCRIT 38.7 % (37.0-47.0); HEMOGLOBIN 12.3 g/dl (12.0-16.0); LYMPHOCYTES # 1.8 10^3/ul (0.8-2.9); LYMPHOCYTES % 17.3 % (15.0-51.0); MEAN CORPUSCULAR HEMOGLOBIN 28.7 pg (29.0-33.0); MEAN CORPUSCULAR HGB CONC 31.8 g/dl (32.0-37.0); MEAN CORPUSCULAR VOLUME 90.2 fl (82.0-101.0); MEAN PLATELET VOLUME 11.1 fl (7.4-10.4); MONOCYTE # 0.6 10^3/ul (0.3-0.9); MONOCYTES % 5.9 % (0.0-11.0); NEUTROPHIL # 7.3 10^3/ul (1.6-7.5); PLATELET COUNT 278 10^3/UL (140-415); RED BLOOD COUNT 4.29 10^6/ul (4.20-5.40); RED CELL DISTRIBUTION WIDTH 14.3 % (11.5-14.5); WHITE BLOOD COUNT 10.2 10^3/ul (4.8-10.8)
[2017-07-25 11:02] LABS: INR 0.99; PROTIME 13.1 Sec (12.2-14.2)
[2017-07-25 11:03] LABS: PARTIAL THROMBOPLASTIN TIME 27.1 Sec (25.0-35.0)
[2017-07-25 11:06] LABS: ALANINE AMINOTRANSFERASE 33 IU/L (13-69); ALBUMIN 3.8 g/dl (3.3-4.9); ALBUMIN/GLOBULIN RATIO 1.31; ALKALINE PHOSPHATASE 75 IU/L (42-121); ANION GAP 13 (8-16); ASPARTATE AMINO TRANSFERASE 21 IU/L (15-46); BILIRUBIN,INDIRECT 0.4 mg/dl (0-1.1); BILIRUBIN,TOTAL 0.4 mg/dl (0.2-1.3); CARBON DIOXIDE 28 mmol/L (21-31); CHLORIDE 106 mmol/L (97-110); CHOL/HDL RATIO 3.3 RATIO; CHOLESTEROL 143 mg/dl (100-200); CREATINE KINASE 40 IU/L (23-200); GLUCOSE 210 mg/dl (70-220); HDL CHOLESTEROL 43 mg/dl (33-92); TOTAL PROTEIN 6.7 g/dl (6.1-8.1); TRIGLYCERIDES 88 mg/dl (0-149)
[2017-07-25 11:07] LABS: BLOOD UREA NITROGEN 17 mg/dl (7-20); CALCIUM 8.9 mg/dl (8.4-10.2); CREATININE 0.79 mg/dl (0.44-1.00); SODIUM 142 mmol/L (135-144)
[2017-07-25 11:21] LABS: TROPONIN-I < 0.012 ng/ml (0.00-0.12)
[2017-07-25] MEDS ORDERED: MIDAZOLAM 1 MG/ML 2 ML INJ ONE (11:32)
[2017-07-25] MEDS ORDERED: FENTAnyl 50 MCG/ML VIAL ONE (11:32)
[2017-07-25] MEDS ORDERED: LIDOCAINE 1% (MDV) 20 ML INJ ONE (11:33)
[2017-07-25] MEDS ORDERED: IODIXANOL LOCM 100 ML BTL ONE (11:33)
[2017-07-25] MEDS ORDERED: VERAPAMIL 5 MG INJ ONE (11:57)
[2017-07-25] MEDS ORDERED: NITROGLYCERIN (IC) 100 MCG/ML INJ ONE ×2 (11:58→12:28)
[2017-07-25] MEDS ORDERED: CLOPIDOGREL 300 MG TAB ONE (12:31)
[2017-07-25] MEDS ORDERED: SOD CHLORIDE 0.9% 1,000 ML IV SCH (12:44)
[2017-07-25] MEDS ORDERED: ACETAMINOPHEN 325 MG TAB PO PRN (13:00)
[2017-07-25] MEDS ORDERED: ALBUTEROL HFA 8 GM INHALER INH PRN (13:00)
[2017-07-25] MEDS ORDERED: OXYCODONE/ACETAMINOPHEN (5/325) TAB PO PRN (13:00)
[2017-07-25] MEDS ORDERED: morphine 2 MG INJ IV PRN (13:00)
--- NOTE | 2017-07-25 13:03 | OPR ---
Date/Time of Note Date/Time of Note DATE: 07/25/17 TIME: 12:54 Operative Report Procedure Date: Jul 25, 2017 Preoperative Diagnosis angina. abnormal stress test on optimized medical therapy Postoperative Diagnosis CAD Surgeon see signature line Director Of Consumer Marketing N/A Anesthesia Type: moderate sedation Estimated Blood Loss: minimal Transfusion none Specimen NONE Grafts/Implants none Complications none Procedure Description Residential Remodeling Subcontractor: Ham Stewart MD Indication: 76 year old with angina and abnormal stress test on optimized medical therapy, showing significant LCX ischemia Procure performed: #1 left heart catheterization and selective right and left coronary angiogram. #2 Right femoral angiogram and closure using a perclose device 3. Successful PTCA and stenting of obtuse marginal 2 from chronic total occlusion to no significant residual stenosis using a 2.5 x 20 mm Synergy drug- eluting stent 4. Successful angioplasty of the ostium and proximal obtuse marginal 1 4. Moderate sedation for more than 75 minutes Findings: 1. Left main: is normal and birfurcates to LAD & LCX. 2. LAD: has minimal stenosis at proximal LAD, and 50 % stenosis at mid LAD. Diagonal 1 is a moderate-sized vessel with 50% proximal/ostial stenosis. 3. Left circumflex artery: is nondominant. it has 80% ostial stenosis at OM1 --- --> 10% post PTCA. OM2 chronic total occlusion with left to left collaterals. After successful PTCA stenting this lesion there was no significant residual stenosis left. 4. RCA: is dominant. it has 40 % stenosis at mid RCA Procedure in detail: Written informed consent with obtained after risks benefits and alternatives discussed with the patient in detail. risks including but not limited to risk of infection vascular complications, bleeding complications, NH stroke arrhythmia renal failure at even were discussed with the patient in detail. Patient was brought into the cardiac matlab developer and placed in supine position. Right and left groin area was prepped and draped in regular sterile fashion and then he was in anesthetized using 1% lidocaine. Right femoral artery was cannulated and using modified seldinger technique a 6 Indonesian sheath was placed in the right femoral artery. Right femoral angiogram was performed. JL4 catheter was advanced and engaged into the left main coronary artery and angiographic view was obtained. The JR4 catheter was advanced and engaged right coronary artery angiographic view was obtained. JR4 was advanced to engage the left ventricle hemodynamics as recorded by pullback aortic pressure was measured. At this time we decided to perform PCI of the left circumflex artery. I used a Perclose and preclosed the right femoral artery. Then I changed the sheath to a long 7 Indonesian sheath. A 7 Indonesian Voda 3.5 guiding head was advanced to engage the left main coronary artery. Platelet 200 wire was used and advanced across the REVENUE ACCOUNTANT lesion and placed distal to the artery. I used a 1.25 x 12 balloon which was placed across the lesion and predilated the vessel. Then I used a 2.5 x 12 mm noncompliant balloon which was placed across the lesion deployed at 12 coral. Then I used another BMW wire which was used and advanced in cross into the distal left circumflex artery to protect this vessel. Then I used a 2.5 x 20 mm Synergy drug-eluting stent which was placed across the lesion and deployed at 16 coral. Then the boat pilot wire was removed and redirected towards the obtuse marginal 1. Finally a 2.5 x 12 mm noncompliant balloon was used and dilated the OM1. Final angiographic view was obtained which showed BARBAR[place]-3 flow no evidence of dissection and no significant residual stenosis at the site of the stent. perclose was successfully deployed. Patient tolerated the procedure well with no complication. Patient was transferred to ICU in stable condition. contrast used: 130 cc Conclusions: Successful PTCA stenting of the obtuse marginal 2 artery from 100% chronic total occlusion stenosis to no significant residual stenosis using a 2.5 x 20 mm Synergy drug-eluting stent. Successful angioplasty of the ostium of the obtuse marginal 1. Recommendations: Aggressive medical therapy. aspirin indefinitely dual antiplatlet therapy with aspirin and Plavix ICU care overnight. HAM STEWART MD [facility] HAM STEWART MD Jul 25, 2017 13:03
[2017-07-25] MEDS ORDERED: GLUCOSE GEL 15 GRAM TUBE BUCCAL PRN (13:30)
[2017-07-25] MEDS ORDERED: DEXTROSE 50% 50 ML SYRINGE IV PRN ×2 (13:30)
[2017-07-25] MEDS ORDERED: GLUCOSE GEL 15 GRAM TUBE PO PRN ×2 (13:30)
[2017-07-25] MEDS ORDERED: GLUCAGON 1 MG INJ IM PRN (13:30)
[2017-07-25] MEDS: VALSARTAN 160 MG TAB PO SCH (14:27)
[2017-07-25] MEDS: PREGABALIN 25 MG CAP PO SCH ×2 (20:25→21:00)
[2017-07-25] MEDS ORDERED: INSULIN ASPART [NOVOLOG] 3 ML PEN SC ONE (20:30)
[2017-07-25] MEDS ORDERED: ALBUTEROL/IPRATROPIUM (NEB) 3 ML AMP HHN PRN (20:30)
[2017-07-25] MEDS ORDERED: ACCU-CHEK XX SCH (21:00)
[2017-07-25] MEDS: INSULIN ASPART [NOVOLOG] 3 ML PEN SC SCH ×2 (21:00→23:10)
--- NOTE | 2017-07-25 21:50 | RADRPT ---
Vent Rate: 66 bpm RR Interval: 0 msec AL Interval: 184 msec QRS Duration: 84 msec QT Interval: 398 msec QTC Interval: 417 msec P-R-T [place]: 53 - 61 - 179 degrees Normal sinus rhythm Nonspecific T wave abnormality Abnormal ECG Electronically Signed By: Qiunten Pérez [id number]
--- NOTE | 2017-07-25 21:51 | RADRPT ---
Vent Rate: 77 bpm RR Interval: 0 msec ID Interval: 182 msec QRS Duration: 82 msec QT Interval: 378 msec QTC Interval: 427 msec P-R-T [place]: 66 - 78 - 158 degrees Normal sinus rhythm T wave abnormality, consider lateral ischemia Abnormal ECG Electronically Signed By: Quinten Pérez [id number]
[2017-07-26] VITALS (13 sets, daily range): BP systolic 79–169; BP diastolic 42–76; PULSE 68–77; RESP 20–26
[2017-07-26] MEDS ORDERED: ACCU-CHEK XX SCH (02:00)
[2017-07-26 05:51] LABS: BASOPHIL # 0.1 10^3/ul (0.0-0.1); BASOPHILS % 1.2 % (0.0-2.0); EOSINOPHILS # 0.1 10^3/ul (0.0-0.5); EOSINOPHILS % 1.2 % (0.0-7.0); HEMATOCRIT 34.1 % (37.0-47.0); HEMOGLOBIN 10.8 g/dl (12.0-16.0); LYMPHOCYTES # 1.5 10^3/ul (0.8-2.9); MEAN CORPUSCULAR HEMOGLOBIN 29.3 pg (29.0-33.0); MEAN CORPUSCULAR HGB CONC 31.7 g/dl (32.0-37.0); MEAN CORPUSCULAR VOLUME 92.7 fl (82.0-101.0); MEAN PLATELET VOLUME 11.3 fl (7.4-10.4); MONOCYTE # 0.5 10^3/ul (0.3-0.9); MONOCYTES % 8.3 % (0.0-11.0); NEUTROPHIL # 3.6 10^3/ul (1.6-7.5); NEUTROPHILS % 62.9 % (39.0-77.0); PLATELET COUNT 229 10^3/UL (140-415); RED BLOOD COUNT 3.68 10^6/ul (4.20-5.40); RED CELL DISTRIBUTION WIDTH 14.6 % (11.5-14.5); WHITE BLOOD COUNT 5.8 10^3/ul (4.8-10.8)
[2017-07-26 06:31] LABS: BILIRUBIN,INDIRECT 0.3 mg/dl (0-1.1); BILIRUBIN,TOTAL 0.3 mg/dl (0.2-1.3); CALCIUM 8.8 mg/dl (8.4-10.2); CREATININE 0.86 mg/dl (0.44-1.00); MAGNESIUM 1.6 mg/dl (1.7-2.5); POTASSIUM 4.6 mmol/L (3.5-5.1)
[2017-07-26] MEDS: VALSARTAN 160 MG TAB PO SCH (06:41)
--- NOTE | 2017-07-26 07:27 | CONS ---
Date/Time of Note Date/Time of Note DATE: 07/26/17 TIME: 07:24 Consult Date/Type/Reason Admit Date/Time Jul 25, 2017 at 12:44 Initial Consult Date Subjective card S: no chest pain or pressure. no palpitations. mild sob. no groin pain O; General: no acute distress HEENT: NC/AT. pupils are equal. round. NECK: NO JVD. no stridor. CV: RRR. systolic murmur; no gallop or rubs. PULM: no wheezing or rhonchi. GI: SOFT, NT, ND, no rebound or guarding Extremity: trace B/L LE edema. no clubbing. neuro: awake and alert, OX3. Psych: calm and pleasant rectal: deferred vascular: R fem no bleeding or hematoma Objective Vital Signs Date Time Temp Pulse Resp B/P Pulse Ox O2 Delivery O2 Flow Rate FiO2 07/26/17 06:00 75 25 160/49 100 07/26/17 05:00 Nasal Cannula 07/26/17 04:00 98.4 07/26/17 00:00 2.0 Intake and Output 07/25/17 07/25/17 07/26/17 15:00 23:00 07:00 Intake Total 650 ml Balance 650 ml Results/Medications Result Diagram: 07/26/1751007/26/17 05 Results 24 hrs Laboratory Tests Test 07/25/17 10:37 07/25/17 10:41 07/25/17 14:11 07/25/17 21:29 White Blood Count 10.2 Red Blood Count 4.29 Hemoglobin 12.3 Hematocrit 38.7 Mean Corpuscular Volume 90.2 Mean Corpuscular Hemoglobin 28.7 L Mean Corpuscular Hemoglobin Concent 31.8 L Red Cell Distribution Width 14.3 Platelet Count 278 Mean Platelet Volume 11.1 H Neutrophils % 72.0 Lymphocytes % 17.3 Monocytes % 5.9 Eosinophils % 3.3 Basophils % 0.9 Nucleated Red Blood Cells % 0.0 Neutrophils # 7.3 Lymphocytes # 1.8 Monocytes # 0.6 Eosinophils # 0.3 Basophils # 0.1 Nucleated Red Blood Cells # 0.0 Prothrombin Time 13.1 Prothrombin Time Ratio 1.0 INR International Normalized Ratio 0.99 Activated Partial Thromboplast Time 27.1 Sodium Level 142 Potassium Level 5.0 Chloride Level 106 Carbon Dioxide Level 28 Anion Gap 13 Blood Urea Nitrogen 17 Creatinine 0.79 Glucose Level 210 Calcium Level 8.9 Total Bilirubin 0.4 Direct Bilirubin 0.00 Indirect Bilirubin 0.4 Aspartate Amino Transf (AST/SGOT) 21 Alanine Aminotransferase (ALT/SGPT) 33 Alkaline Phosphatase 75 Creatine Kinase 40 Creatine Kinase Index 4.0 Creatinine Kinase MB (Mass) 1.60 Troponin I < 0.012 Total Protein 6.7 Albumin 3.8 Globulin 2.90 Albumin/Globulin Ratio 1.31 Triglycerides Level 88 Cholesterol Level 143 LDL Cholesterol, Calculated 82 HDL Cholesterol 43 Cholesterol/HDL Ratio 3.3 Bedside Glucose 207 170 278 H Test 07/25/17 23:05 07/26/17 05:11 Bedside Glucose 254 H White Blood Count 5.8 # Red Blood Count 3.68 L Hemoglobin 10.8 L Hematocrit 34.1 L Mean Corpuscular Volume 92.7 Mean Corpuscular Hemoglobin 29.3 Mean Corpuscular Hemoglobin Concent 31.7 L Red Cell Distribution Width 14.6 H Platelet Count 229 Mean Platelet Volume 11.3 H Neutrophils % 62.9 Lymphocytes % 25.0 Monocytes % 8.3 Eosinophils % 1.2 Basophils % 1.2 Nucleated Red Blood Cells % 0.0 Neutrophils # 3.6 Lymphocytes # 1.5 Monocytes # 0.5 Eosinophils # 0.1 Basophils # 0.1 Nucleated Red Blood Cells # 0.0 Sodium Level 143 Potassium Level 4.6 Chloride Level 106 Carbon Dioxide Level 31 Anion Gap 11 Blood Urea Nitrogen 15 Creatinine 0.86 Glucose Level 218 Calcium Level 8.8 Magnesium Level 1.6 L Total Bilirubin 0.3 Direct Bilirubin 0.00 Indirect Bilirubin 0.3 Aspartate Amino Transf (AST/SGOT) 14 L Alanine Aminotransferase (ALT/SGPT) 30 Alkaline Phosphatase 64 Creatine Kinase 32 B-Type Natriuretic Peptide 1710 H Total Protein 6.0 L Albumin 3.0 L Globulin 3.00 Albumin/Globulin Ratio 1.00 Medications Current Medications Aspirin (Halfprin) 81 mg DAILY PO ; Start 07/25/17 at 13:00 Acetaminophen (Tylenol Tab) 650 mg Q4H PRN PO NON-CARDIAC PAIN LEVEL 1-3; Start 07/25/17 at 13:00 Oxycodone/ Acetaminophen (Percocet (5/ 325)) 1 tab Q4H PRN PO REPORTED NON- CARDIAC PAIN 4-7; Start 07/25/17 at 13:00 Morphine Sulfate (morphine) 1 mg Q1H PRN IV PAIN NOT RELIEVED BY OTHERS Last administered on 07/25/17 13:45; Admin Dose 1 MG; Start 07/25/17 at 13:00 Albuterol (Ventolin Hfa) 2 puff Q4H PRN INH WHEEZING AND SOB; Start 07/25/17 at 13:00 Atorvastatin Calcium (Lipitor) 20 mg QAM PO ; Start 07/26/17 at 09:00 Clopidogrel Bisulfate (plaVIX) 75 mg DAILY PO ; Start 07/26/17 at 09:00 Duloxetine HCl (Cymbalta) 60 mg DAILY PO ; Start 07/26/17 at 09:00 Isosorbide Mononitrate (Imdur) 30 mg DAILY PO ; Start 07/26/17 at 09:00 Linagliptin (Tradjenta) 5 mg DAILY PO ; Start 07/26/17 at 09:00 Pregabalin (Lyrica) 50 mg TID PO Last administered on 07/25/17 20:25; Admin Dose 50 MG; Start 07/25/17 at 13:00 Spironolactone (Aldactone) 25 mg DAILY PO ; Start 07/26/17 at 09:00 Valsartan (Diovan) 160 mg DAILY PO Last administered on 07/26/17 06:41; Admin Dose 160 MG; Start 07/25/17 at 13:00 Diagnostic Test (Pha) (Accu-Chek) 1 ea 02 XX ; Start 07/26/17 at 02:00 Miscellaneous Information 1 ea NOTE XX ; Start 07/25/17 at 13:30 Glucose (Glutose) 15 gm Q15M PRN PO DECREASED GLUCOSE; Start 07/25/17 at 13:30 Glucose (Glutose) 22.5 gm Q15M PRN PO DECREASED GLUCOSE; Start 07/25/17 at 13: 30 Dextrose (D50w Syringe) 25 ml Q15M PRN IV DECREASED GLUCOSE; Start 07/25/17 at 13:30 Dextrose (D50w Syringe) 50 ml Q15M PRN IV DECREASED GLUCOSE; Start 07/25/17 at 13:30 Glucagon (Glucagen) 1 mg Q15M PRN IM DECREASED GLUCOSE; Start 07/25/17 at 13: 30 Glucose (Glutose) 15 gm Q15M PRN BUCCAL DECREASED GLUCOSE; Start 07/25/17 at 13:30 Clonidine (Catapres) 0.1 mg Q4H PRN PO ELEVATED SYSTOLIC BP; Start 07/25/17 at 14:00 Carvedilol (Coreg) 6.25 mg BID PO ; Start 07/26/17 at 09:00 Assessment/Plan Chief Complaint/Hosp Course 1. angina 2. CAD: S/P PCI LCX 3. HTN 4. DM 5. Dyslipidemia 6. CHF: chronic and stable. lasix IV x dose now inc coreg 6.25 bid cont ASA PLAVIX DC HOME F/U WITH ME IN 2 weeks HAM GRIGGS MD Problems: HAM GRIGGS MD Jul 26, 2017 07:27
[2017-07-26] MEDS ORDERED: CARV6.2579 PO (07:29)
[2017-07-26] MEDS ORDERED: FUROSEMIDE 20 MG INJ IV ONE (07:30)
[2017-07-26] MEDS: INSULIN ASPART [NOVOLOG] 3 ML PEN SC SCH ×2 (08:15→12:06)
[2017-07-26] MEDS: PREGABALIN 25 MG CAP PO SCH (08:21)
[2017-07-26] MEDS: ASPIRIN (EC) 81 MG TAB PO SCH (08:24)
[2017-07-26] MEDS ORDERED: SPIRONOLACTONE 25 MG TAB PO SCH (09:00)
[2017-07-26] MEDS ORDERED: CLOPIDOGREL 75 MG TAB PO SCH (09:00)
[2017-07-26] MEDS ORDERED: LINAGLIPTIN 5 MG TABLET PO SCH (09:00)
[2017-07-26] MEDS ORDERED: DULOXETINE 30 MG CAP DR PO SCH (09:00)
[2017-07-26] MEDS ORDERED: ATORVASTATIN 20 MG TAB PO SCH (09:00)
[2017-07-26] MEDS ORDERED: ASPIRIN (EC) 81 MG TAB PO SCH (09:00)
[2017-07-26] MEDS ORDERED: ISOSORBIDE MONONITRATE(SR)30 MG TAB PO SCH (09:00)
== END 2017-07-26 14:27 | disposition home or self-care (01) ==
LOC: SDS 09:11 → REC 12:44 → ICU 22:24
PROVIDERS: ADMIT Internal Medicine Interventional Cardiology; ATTEND Internal Medicine Interventional Cardiology
DX: I25.119 Atherosclerotic heart disease of native coronary artery with unspecified angina pectoris (principal); I11.0 Hypertensive heart disease with heart failure; I50.9 Heart failure, unspecified; E11.9 Type 2 diabetes mellitus without complications; E78.5 Hyperlipidemia, unspecified
CPT/HCPCS: 80053; 80061; 82550; 82553; 82962; 83735; 83880; 84484; 85025; 85610; 85730; 87081; 92921; 93005; C1725; C1760; C1874; C1887; C1894; C9607; G0378; J1644; J1815; J1940; J2250; J2270; J3010; Q9967

== ENCOUNTER 2017-12-04 13:44 | Observation (INO) | END 2017-12-07 12:15 | disposition home or self-care (01) ==

== ENCOUNTER 2018-01-05 13:27 | Observation (INO) | END 2018-01-06 14:20 | disposition home or self-care (01) ==